=== PATIENT | female | born 1975 | race Caucasian/White ===

== ENCOUNTER → 2020-11-27 10:08 | Outpatient (BNVA) | payer OTHER, SELFPAY | PROVIDERS: Family Provider Family Medicine; PCP Family Medicine; Visit Provider Family Medicine | DX: B00.1 Herpesviral vesicular dermatitis (principal); Z14.8 Genetic carrier of other disease; R19.4 Change in bowel habit | CPT/HCPCS: 82728; 83550 ==

== ENCOUNTER → 2020-12-05 08:21 | Outpatient (BNVA) | payer OTHER, SELFPAY | PROVIDERS: Family Provider Family Medicine; PCP Family Medicine; Visit Provider Family Medicine | DX: B00.1 Herpesviral vesicular dermatitis (principal); Z14.8 Genetic carrier of other disease; R19.4 Change in bowel habit; L85.3 Xerosis cutis; G43.009 Migraine without aura, not intractable, without status migrainosus | CPT/HCPCS: 87046; 87177; 87209 ==

== ENCOUNTER → 2021-02-07 15:47 | Outpatient (BNVA) | payer OTHER, SELFPAY | PROVIDERS: Family Provider Family Medicine; PCP Family Medicine; Visit Provider Nurse Practitioner Women's Health | DX: Z01.419 Encounter for gynecological examination (general) (routine) without abnormal findings (principal); B00.1 Herpesviral vesicular dermatitis; Z87.42 Personal history of other diseases of the female genital tract | CPT/HCPCS: 88175 ==

== ENCOUNTER 2021-03-20 06:00 | Outpatient (CLI) | payer OTHER, SELFPAY | END 2021-03-20 06:01 | disposition home or self-care (01) | LOC: LAB 04-06 15:30 | PROVIDERS: PCP Family Medicine; Visit Provider Family Medicine | DX: D50.9 Iron deficiency anemia, unspecified (principal); Z14.8 Genetic carrier of other disease | CPT/HCPCS: 82728; 83550; 85025 ==

== ENCOUNTER 2021-03-24 09:28 | Emergency (ER) | payer OTHER, SELFPAY ==
[2021-03-24 09:36] VITALS: BP 136/88; PULSE 97; RESP 16; TEMP 36.9; O2SAT 100; BMI 23.3
--- NOTE | 2021-03-24 09:43 | W.ED.BACK ---
HPI - Back Pain/Injury General: Chief Complaint: Back Pain/Injury Stated Complaint: BACK PAIN Time Seen by Provider: 03/24/21 09:37 Source: patient Mode of arrival: ambulatory Limitations: no limitations History of Present Illness: HPI Narrative: Patient is a 45-year-old female who presents to the ED today with a complaint of lower back pain. Patient tells me last week while carrying her granddaughter up a flight of stairs she immediately noticed an explosion sensation to her lower back. Patient tells me in 2018 she was diagnosed with a bulging disc near her L5 vertebrae. She feels this most likely has happened again. She has seen her PCP as well as [facility] who has prescribed robaxin, prednisone, hydrocodone, diclofenac. She states pain is continuing to worsen. PCP has ordered a CT scan outpatient however patient states with her insurance it will most likely not be completed anytime soon. She states the pain radiates to her left upper leg. She denies saddle anesthesia. No urinary retention or bowel incontinence. MD elicited complaint: back pain Pertinent past history: prior back pain Onset (ago): day(s) Timing: constant Severity: severe Similar Symptoms Previously: Yes Location: lumbar spine Radiation: left upper leg Exacerbating factors: movement, walking and coughing/sneezing Relieving factors: none Associated symptoms: Reports difficulty walking (secondary to pain); Deny abdominal pain, dysuria or fever(s) Treatments prior to arrival: prescription analgesics Work related injury: No Review of Systems Const: Denies: fever(s) Card: Denies: chest pain Resp: Denies: dyspnea GI: Denies: abdominal pain : Denies: flank pain or dysuria Musc: Reports: back pain; Denies: neck pain, extremity pain, extremity swelling, joint pain, joint swelling, joint redness, joint warmth or limited range of motion Neuro: Reports: difficulty walking (secondary to pain); Denies: headache(s), numbness in extremities, weakness in extremities, sensory changes or frequent falls [facility] PFSH: Medical History Carrier of hemochromatosis HFE gene mutation Eustachian tube dysfunction H/O menorrhagia Lumbar disc disease Migraine headache No pertinent past medical history neghx: htn,dm,thyroid,dvt/pe PCP: Dr. John Recurrent cold sores Surgical History H/O oral surgery (~1994) Family History Father Heart disease Hypercholesteremia Mother Family history of thyroid problem Family/Other Family history of thyroid problem Maternal AUNT Maternal COUSINS Breast cancer Maternal GREAT AUNT--dx age 70's Diabetes GREAT AUNT GREAT-GRANDFATHER Grandmother Family history of thyroid problem Maternal Hypertension Maternal and Paternal Grandfather Hypertension Maternal and Paternal Denies family history of Colon cancer Ovarian cancer Uterine cancer Stroke Social History Smoking and tobacco status: never smoked Alcohol intake: never Physical Exam Const: COMMON NORMALS: no acute distress, average body habitus, patient oriented x3, no limitations, healthy appearing, alert and well nourished GENERAL APPEARANCE: cooperative ORIENTATION/CONSCIOUSNESS: Yes awake, Yes oriented to person, Yes oriented to place and Yes oriented to time Back/Pelvis: THORACIC SPINE/UPPER BACK: Yes normal to inspection and Yes thoracic ROM normal LUMBAR SPINE/LOWER BACK: Yes lumbar ROM normal, Yes lumbar spinal tenderness Lumbar spinal tenderness location: L4 and L5, No paraspinal muscle tenderness and No paraspinal muscle spasm PELVIS: Yes buttocks normal SACROILIAC JOINTS: Yes SI joints normal Extremity: GENERAL: Yes normal exam except as noted Neuro: COMMON NORMALS: patient oriented x3, moves all extremities, no focal motor deficits, no sensory deficits noted and gait normal SENSORIUM/ORIENTATION: Yes alert, Yes oriented to person, Yes oriented to place and Yes oriented to time Skin: COMMON NORMALS: no rashes or lesions noted GENERAL SKIN EXAM: no rashes or lesions noted Course Vital Signs: Vital signs: Vital Signs Temperature 98.4 F 03/24/21 09:36 Pulse Rate 97 03/24/21 09:36 Respiratory Rate 16 03/24/21 09:36 Blood Pressure 136/88 03/24/21 09:36 Pulse Oximetry 100 03/24/21 09:36 MDM - Back Pain/Injury MDM Narrative: Medical decision making narrative: No emergent findings on physical exam or CT. She is requesting referral to Dr. Lora so this was placed with CM. Return to ED precautions given. She is comfortable continuing to take her currently prescribed medications for her discomfort. Imaging Data^: CT lumbar: Radiologist's impression: [facility] [address] [place] [address] CT Scan Report Signed Patient: Martine Aguilar Unit #: [id number] : [id number] Age/Sex: 45 / F ADM Date: 03/24/21 Loc: ER Room/Bed: Attending Dr: Ordering Provider/Ordering MD: Virginia Brand Date of Service: 03/24/21 Procedure(s): CT lumbar spine wo con* [id number] Accession Number(s): [id number] Report Number: [id number] WS: [id number] CT LUMBAR SPINE, noncontrast. HISTORY: lower back pain TECHNIQUE: Contiguous 2.5 mm axial imaging are performed. Sagittal and coronal reformats are submitted and reviewed. All CT scans at [facility] use at least one of these dose optimization techniques: automated exposure control; mA and/or kV adjustment per patient size (includes targeted exams where dose is matched to clinical indication); or iterative reconstruction. IV contrast: None DLP: 1468.68 mGy.cm COMPARISON: 11/30/2017 Rudimentary rib is suspected at T12 as seen on the loan manager localizer. 5 lumbar type vertebral bodies with partial sacralization of L5 on the RIGHT. Normal lumbar alignment. No fractures. No pars defects. L1-2: Normal. L2-3: Normal. L3-4: Normal. L4-5: Mild annular disc bulging with a central disc protrusion. Additional smaller protrusion in the LEFT foramen is new. Mild encroachment upon the ventral thecal sac. There is slightly greater encroachment upon the LEFT L5 nerve root. And mild impingement upon the ventral thecal sac. L5-S1: Slight annular disc bulging with no stenosis. Visualized retroperitoneum is normal. CT/CT lumbar spine wo con* [id number] IMPRESSION: 1. No significant stenosis. 2. Central and LEFT foraminal disc protrusions at L4-5 with mild encroachment upon the ventral thecal sac and the LEFT L5 nerve root. Slightly greater involvement as compared to 11/30/2017. 3. No fractures. 4. Partial sacralization L5 on the RIGHT. Dictated By: Tara Bolaños DO Signed By: Tara Bolaños DO Signed Date/Time: 03/24/21 1102 DD/ 1056 Discharge Plan Discharge Patient Disposition: Home Clinical Impression: Bulging of intervertebral disc between L4 and L5 Condition: Stable Prescriptions: No Action fexofenadine [Judy Allergy] 180 mg tablet 180 mg PO QDAY RF: 0 fluticasone propionate [Flonase Allergy Relief] 50 mcg/actuation spray,suspension 1 spray INTRANASAL QDAY RF: 0 valacyclovir 1 gram tablet 2,000 mg PO BID PRNRF: 0 hydrocodone-acetaminophen 5-325 mg tablet 1 tab PO Q8H PRN (Reason: pain) 6 Days Qty: 14 RF: 0 diclofenac sodium 75 mg tablet,delayed release (DR/EC) 75 mg PO Q12H Qty: 60 RF: 0 prednisone 10 mg tablet 30 mg PO DAILY 5 Days Qty: 15 RF: 0 methocarbamol [Robaxin-750] 750 mg tablet 750 mg PO TID 6 Days Qty: 18 RF: 0 pseudoephedrine HCl [Sudafed] 30 mg tablet 60 mg PO Q6H PRN (Reason: nasal congestion) Qty: 30 RF: 0 Discharge Orders: Discharge ED (Routine); Ordered 03/24/21 Ordered By: Virginia Brand Referrals: Henrik Lora DO [Physician] - Radha John DO [Primary Care Provider] - Patient Instructions: Lumbar Disc Herniation (ED) Activity Restrictions/Additional Instructions: As discussed case management should contact you today or tomorrow and get you set up with an appointment for evaluation with Dr. Lora. He may return to the emergency department for worsening or uncontrollable pain, urinary retention, bowel incontinence, inability to ambulate, or any other concerns you may have. I hope you begin to feel better soon. Coding Level of Care Code ED Fabric Separator Operator for Sherong Fwd Exam Detailed
--- NOTE | 2021-03-24 09:54 | CT_ITS ---
WS: [id number] CT LUMBAR SPINE, noncontrast. HISTORY: lower back pain TECHNIQUE: Contiguous 2.5 mm axial imaging are performed. Sagittal and coronal reformats are submitte d and reviewed. All CT scans at [facility] use at least one of these dose optimization te chniques: automated exposure control; mA and/or kV adjustment per patient size (includes targeted exa ms where dose is matched to clinical indication); or iterative reconstruction. IV contrast: None DLP: 1468.68 mGy.cm COMPARISON: 11/30/2017 Rudimentary rib is suspected at T12 as seen on the field agronomist localizer. 5 lumbar type vertebral bodies wi th partial sacralization of L5 on the RIGHT. Normal lumbar alignment. No fractures. No pars defects. L1-2: Normal. L2-3: Normal. L3-4: Normal. L4-5: Mild annular disc bulging with a central disc protrusion. Additional smaller protrusion in the LEFT foramen is new. Mild encroachment upon the ventral thecal sac. There is slightly greater encroac hment upon the LEFT L5 nerve root. And mild impingement upon the ventral thecal sac. L5-S1: Slight annular disc bulging with no stenosis. Visualized retroperitoneum is normal. CT/CT lumbar spine wo con* [id number] IMPRESSION: 1. No significant stenosis. 2. Central and LEFT foraminal disc protrusions at L4-5 with mild encroachment upon the ventral thecal sac and the LEFT L5 nerve root. Slightly greater involv ement as compared to 11/30/2017. 3. No fractures. 4. Partial sacralization L5 on the RIGHT.
--- NOTE | 2021-03-25 09:27 | DCPLANNER ---
air export logistics manager had message to schedule a follow up appointment for patient with Dr. Lora at ortho for spine, back pain/disc protrusion. air export logistics manager called the ortho clinic, spoke with Grisel, gave clinic patients information. air export logistics manager was told that patients information would be printed and reviewed. Clinic will call patient with appointment information.
--- NOTE | 2021-03-26 07:32 | DCPLANNER ---
Patient has a follow up appointment scheduled for Thursday, April 01, 2021 at 8:[address] Lora at [facility]. Clinic will call patient with appointment information.
--- NOTE | 2021-05-15 14:49 | DCPLANNER ---
Patient had a follow up appointment scheduled for 04.01.[address]ora at [facility] - patient did attend appointment.
== END 2021-03-24 11:21 | disposition home or self-care (01) ==
PROVIDERS: Emergency Provider Physician Assistant; PCP Family Medicine
DX: M51.26 Other intervertebral disc displacement, lumbar region (principal)
CPT/HCPCS: 72131; 99282

== ENCOUNTER → 2021-04-01 08:59 | Outpatient (BNVA) | payer OTHER, SELFPAY | PROVIDERS: PCP Family Medicine; Referring Provider Physician Assistant; Visit Provider Orthopaedic Surgery | DX: M51.9 Unspecified thoracic, thoracolumbar and lumbosacral intervertebral disc disorder (principal); M51.16 Intervertebral disc disorders with radiculopathy, lumbar region; M54.9 Dorsalgia, unspecified; M47.896 Other spondylosis, lumbar region | CPT/HCPCS: 72110 ==

== ENCOUNTER 2021-04-11 08:25 | Outpatient (CLI) | payer OTHER, SELFPAY ==
--- NOTE | 2021-04-11 08:49 | MR_ITS ---
WS: [id number] MRI LUMBAR SPINE NONCONTRAST HISTORY: BACK PAIN COMPARISON: 11/25/[address] 03/24/2021 TECHNIQUE: Sagittal and axial multisequence imaging is submitted. The same numbering pattern will be utilized on today's MRI as on the recent CT of 03/24/2021 and the p rior MRI of 11/25/2012. Mild straightening of the normal lumbar lordosis. No marrow edema. Mild disc desiccation at L4-5 and L5-S1 without significant stenosis. Several Schmorl's nodes defects are noted. Conus terminates normally at L1. L1-L2: Normal. L2-L3: Normal. L3-L4: Very mild annular disc bulging. No stenosis. L4-L5: Very mild annular disc bulge with a central disc protrusion and annular fissure. Mild contact and flattening of the ventral thecal sac. No significant foraminal stenosis. There is mild disc conta ct on the L5 nerve roots bilaterally in the lateral recesses, LEFT greater than RIGHT. L5-S1: No stenosis. MR/MR lumbar spine wo con* [id number] IMPRESSION: 1. Same vertebral body numbering pattern will be utilized on today's MRI as on the prior CT and MRI. 2. Central disc protrusion at L4-5 contacting the L5 nerve roots bilaterally i n the lateral recesses, LEFT greater than RIGHT. Otherwise no significant steno sis.
== END 2021-04-11 08:26 | disposition home or self-care (01) ==
LOC: RADSHAW 08:27
PROVIDERS: PCP Family Medicine; Visit Provider Orthopaedic Surgery
DX: M51.26 Other intervertebral disc displacement, lumbar region (principal)
CPT/HCPCS: 72148

== ENCOUNTER → 2021-04-16 09:28 | Outpatient (BNVA) | payer OTHER, SELFPAY | PROVIDERS: PCP Family Medicine; Referring Provider Orthopaedic Surgery; Visit Provider Anesthesiology Pain Medicine | DX: M51.36 Other intervertebral disc degeneration, lumbar region (principal); M51.37 Other intervertebral disc degeneration, lumbosacral region; M54.9 Dorsalgia, unspecified | CPT/HCPCS: 99205 ==

== ENCOUNTER → 2021-04-29 14:14 | Outpatient (BNVA) | payer OTHER, SELFPAY | PROVIDERS: PCP Family Medicine; Visit Provider Anesthesiology Pain Medicine | DX: M54.16 Radiculopathy, lumbar region (principal); M54.9 Dorsalgia, unspecified; Z79.891 Long term (current) use of opiate analgesic | CPT/HCPCS: 64483; 64484; J1100; J3490 ==

== ENCOUNTER → 2021-05-12 09:04 | Outpatient (BNVA) | payer OTHER, SELFPAY | PROVIDERS: PCP Family Medicine; Visit Provider Anesthesiology Pain Medicine | DX: M54.9 Dorsalgia, unspecified (principal); M51.9 Unspecified thoracic, thoracolumbar and lumbosacral intervertebral disc disorder; M51.16 Intervertebral disc disorders with radiculopathy, lumbar region; M79.605 Pain in left leg; Z79.891 Long term (current) use of opiate analgesic | CPT/HCPCS: 99213 ==

== ENCOUNTER → 2021-08-06 11:33 | Outpatient (BNVA) | payer OTHER, SELFPAY | PROVIDERS: PCP Family Medicine; Visit Provider Orthopaedic Surgery | DX: Z01.818 Encounter for other preprocedural examination (principal); Z20.822 Contact with and (suspected) exposure to COVID-19 | CPT/HCPCS: 87635 ==

== ENCOUNTER 2021-08-11 05:37 | Day surgery (SDC) | payer OTHER, SELFPAY ==
[2021-08-08 11:17] VITALS: BMI 24.2
--- NOTE | 2021-08-08 13:19 | ANES.PREANE2 ---
Pre-Anesthetic Assessment Pre-Anesthetic Assessment: Height/Weight: Height 1.68 m Weight 68.039 kg Preop Diagnosis: lumbar stenosis Proposed Procedure: Operation Date: 08/11/21 07:00 Proposed Procedures p L4/5 MIS decompresssion 50020 m51.16(Not Applicable) - Henrik Lora, DO Was Beta Tito taken within 24 hours: N/A Was Clonidine taken within 24 hours: N/A Social: Social History: No alcohol and No tobacco Exam: Pre-Anes Outpt Exam: alert and oriented x 3 Airway: Submandibular: WNL Cervical ROM: WNL MP: 1 Pulmonary: Pulmonary: None reported CV/HEM: CV/HEM: None reported : : None reported Hepatic: Hepatic: None reported GI: GI: None reported Metabolic: Metabolic: None reported Musc/skel: Musc/skel: Lower Back Pain, OA/DJD and Weakness Neuropsych: Neuropsych: None reported Anesthetic Plan: ASA status: 2 Anesthesia: General PFSH Anesthesia PFSH: Medical History Carrier of hemochromatosis HFE gene mutation Eustachian tube dysfunction H/O menorrhagia Lumbar disc disease Migraine headache No pertinent past medical history neghx: htn,dm,thyroid,dvt/pe PCP: Dr. John Recurrent cold sores Surgical History H/O oral surgery (~1994) Family History Father Heart disease Hypercholesteremia Mother Family history of thyroid problem Family/Other Family history of thyroid problem Maternal AUNT Maternal COUSINS Breast cancer Maternal GREAT AUNT--dx age 70's Diabetes GREAT AUNT GREAT-GRANDFATHER Grandmother Family history of thyroid problem Maternal Hypertension Maternal and Paternal Grandfather Hypertension Maternal and Paternal Denies family history of Colon cancer Ovarian cancer Uterine cancer Stroke Social History Smoking and tobacco status: never smoked Alcohol intake: never Female Reproductive History: Date of last menstrual period: 07/30/21 Data Anesthesia Cardiac Studies: No Data to Display
[2021-08-11] VITALS (8 sets, daily range): BP systolic 103–150; BP diastolic 68–91; PULSE 80–129; RESP 16–21; TEMP 36.3–36.8; O2SAT 98–100
--- NOTE | 2021-08-11 | XR_ITS ---
WS: [id number] XR lumbar spine 1V [id number] REASON FOR EXAM: decompression L4/L5 FINDINGS: Surgical instrument overlying the L4-L5 disc space. XR/XR lumbar spine 1V 24710 IMPRESSION: L4-L5 disc space localized.
--- NOTE | 2021-08-11 | SCC_ITS ---
Procedure Done: Left L4/5 laminectomy with partial facetectomy 11.8 seconds of fluoroscopic guidance, for a cumulative dose of 2.72 mGy, was provided to Dr. Lora by the radiology department. C-arm images of the lumbar spine were saved for the patient's permanent record. [facility]OSPITALBritt
[2021-08-11 06:02] LABS: OR HCG Qualitative Urine Negative (Negative)
[2021-08-11] MEDS: sodium chloride 0.9% 1,000 ML 30 ML IV (06:11)
--- NOTE | 2021-08-11 06:40 | W.PM.OPSUD ---
Surgery/Procedure H&P Update DATE OF PROCEDURE: August 11, 2021 DATE H&P PERFORMED: 08/11/21 H&P UPDATE INFORMATION: I have reviewed H&P completed within last 30 days, I have examined patient prior to procedure and No changes to prior documentation PREOP DIAGNOSIS: lumbar stenosis PLANNED PROCEDURE: Operation Date: 08/11/21 07:00 Proposed Procedures p L4/5 MIS decompresssion 15392 m51.16(Not Applicable) - Henrik Lora,
--- NOTE | 2021-08-11 06:41 | P.HP_ITS ---
Providers/Chief Complaint Primary Care Provider: Radha John DO Chief Complaint: L4/5 MIS decompresssion History of Present Illness Martine Aguilar is a 46 year old female evaluation of her lower back pain and recent injections with Dr. Yang. Patient states the injections lasted about a week an a half. Patient states that they went on a trip and the pain began to increase again. Patient states it is to the lower back, radiating into the buttocks, hip and upper thigh. Patient states that she has some tingling to the upper leg/thigh area. Associated symptoms: Denies abdominal pain, chills, fever(s), nausea or vomiting Review of Systems Narrative: General ROS: negative for weight changes, fever ENT ROS: negative for nasal congestion, drainage or bleeding, sore throat, dysphagia or ear pain Eyes: PERRL Hematological and Lymphatic ROS: negative for swollen glands or abnormal bleeding Endocrine ROS: negative for polyuria/polydpsia or new changes in weight Respiratory ROS: negative for cough, shortness of breath, or wheezing Cardiovascular ROS: negative for chest pain or dyspnea on exertion Gastrointestinal ROS: negative for reflux, abdominal pain, change in bowel habits, or black or bloody stools Musculoskeletal ROS: negative for back pain, neck pain, or joint pain or swelling except for current problem Neurological ROS: negative for TIA or stoke symptoms Skin: no rashes Medications/Allergies Home Medications Medication Instructions Recorded Confirmed Last Taken Type fluticasone propionate 50 1 spray INTRANASAL QDAY 12/29/19 08/11/21 08/10/21 History mcg/actuation nasal spray,suspension valacyclovir 1 gram tablet 2,000 mg PO BID PRN tab 02/07/21 08/08/21 Unknown History hydrocodone 5 mg-acetaminophen 325 1 tab PO Q8H PRN 6 Days #14 tab 03/20/21 08/08/21 Unknown Rx mg tablet Allergies Allergy/AdvReac Type Severity Reaction Status Date / Time Sulfa (Sulfonamide Allergy throat Verified 08/11/21 06:02 Antibiotics) felt funny PFSH Acute PFSH: Medical History Carrier of hemochromatosis HFE gene mutation Eustachian tube dysfunction H/O menorrhagia Lumbar disc disease Migraine headache No pertinent past medical history neghx: htn,dm,thyroid,dvt/pe PCP: Dr. John Recurrent cold sores Surgical History H/O oral surgery (~1994) Family History Father Heart disease Hypercholesteremia Mother Family history of thyroid problem Family/Other Family history of thyroid problem Maternal AUNT Maternal COUSINS Breast cancer Maternal GREAT AUNT--dx age 70's Diabetes GREAT AUNT GREAT-GRANDFATHER Grandmother Family history of thyroid problem Maternal Hypertension Maternal and Paternal Grandfather Hypertension Maternal and Paternal Denies family history of Colon cancer Ovarian cancer Uterine cancer Stroke Social History Smoking and tobacco status: never smoked Alcohol intake: never Female Reproductive History: Date of last menstrual period: 07/30/21 Vitals/I&O/Wt Last Vital Signs Temp 98.2 F 08/11/21 06:04 Pulse 80 08/11/21 06:04 Resp 16 08/11/21 06:04 BP 124/91 08/11/21 06:04 Pulse Ox 98 08/11/21 06:04 Physical Exam Narrative: EXAM NARRATIVE: CONSTITUTIONAL: The patient is a normal appearing [] in no apparent distress. GENERAL: Patient in no acute distress. CARDIAC: Regular rate and rhythm. CHEST: Normal inspiratory effort, normal respiratory rate. ABDOMEN: Soft and nontender. SKIN: Clear, warm and intact. NEURO?PSYCH: The patient is alert and oriented to person, place and time. Sensorv /SILT Motor StrengthShoulder abduction C5 5/5Wrist extension C6 5/5Elbow extension C7 5/5Hand Property Management Specialist C8 5/5Finger abduction T15/5 Radial/ Ulnar/ Median n intact LowerSensory (SILT)Motor StrengthHin flexion L2/3Ant/inner thigh 5/5Hip adduction L2/3 5/5Knee extension L4 Lat thigh, 5/5Toe dorsiflexion L5 5/5Ankle dorsiflexion L5/ B91Wuyxsay flexion S1 5/5 DTRBleeps 2+Triceps 2+Brachioradialis 2+Patellar 2+Achilles 2+ MUSCULOSKELETAL: [] UPPEREXTREMITIES: The patient had full active ROM in fingers, wrist, elbow, and shoulder. The patient demonstrated ability to fully flex/extend/abduct/adduct fingers, make ok sign, cross 2nd/3rd digits, extend 1st digit fully.. Radial pulse 2+, CR<2 seconds. LOWER EXTREMITIES: Pt has full, active ROM of toes, ankle, knee, and hip. Dorsalis pedis/posterior tibialis pulses 2+, CR<2 seconds. SPINE: Skin warm, dry, intact. A&P Assessment and plan (1) Lumbar stenosis with neurogenic claudication: left MIS L4/5 Decompression Status: Acute Attestations Medical Necessity Statement*: failed cosnervative tx Coding Level of Care Code Acute Croze Machine Operator for g Fwd Diagnoses Lumbar stenosis with neurogenic claudication M48.062
--- NOTE | 2021-08-11 07:28 | P.ANESUD_ITS ---
Pre-Anesthetic Update Pre-Anesthetic Assessment: Date of Surgery/Procedure: 08/11/21 Preop Orquidea gnosis: lumbar stenosis Proposed Procedure: Operation Date: 08/11/21 07:00 Proposed Procedures p L4/5 MIS decompresssion 56168 m51.16(Not Applicable) - Henrik Lora, DO Any changes to Pre-Anesthetic Assessment?: No Last Intake: Intake Last Liquid Date 08/10/21 Last Liquid Time 20:00 Last Solid Date 08/10/21 Last Solid Time 20:00 Labs Last 48hrs: Laboratory Results - last 48 hr 08/11/21 06:01 Urine HCG, Qual Negative Vitals: Temperature 98.2 F 08/11/21 06:04 Temperature Source Temporal Artery S can 08/11/21 06:04 Pulse Rate 80 08/11/21 06:04 Respiratory Rate 16 08/11/21 06:04 Blood Pressure 124/91 08/11/21 06:04 Blood Pressure Tanna n 102 08/11/21 06:04 Pulse Oximetry 98 08/11/21 06:04 Oxygen Delivery Me thod 08/11/21 06:04 Exam: Pre-Anes Outpt Exam: alert, oriented x 3, clear to auscultation bilaterally and regular rate & rhythm Cardiac Studies: No Data to Display
--- NOTE | 2021-08-11 07:55 | P.OP_ITS ---
Operative Report Date of procedure: August 11, 2021 Pre-op Diagnosis: lumbar stenosis Post-op diagnosis: same Procedure Done: Left L4/5 laminectomy with partial facetectomy Surgeon: Henrik Lora Anesthesia: General Estimated blood loss (mL): 5 Condition: stable Disposition: PACU Procedure: Left L4/5 laminectomy with partial facetectomy Patient is brought to the operative suite. After undergoing anesthesia they are placed in the supine position. All areas of impingement are well padded. Patient is then prepped and draped in the normal sterile fashion. A skin incision is made over the L4/5 level. This is confirmed under c-arm guidance. A series of dilators are passed and the tubular retractor is docked on the L4 lamina. A bovie is used to clear the soft tissue off the lamina and the L 4/5 facet joint. A high speed julissa is then used to perform the mignon ectomy and take down the medial aspect of the L 4/5 facet joint. A kerrison rongeure was then used to take down the remaining lamina and smooth the edge of the laminectomy up to the point where the ligamentum flavum attaches. Attention was then brought to the medial aspect of the facet joint. The remaining medial aspect of the superior and inferior aspect of the facet joint were taken down with the kerrison from the pedicle of L4 to L 5. The facet joint had significant hypertrophy. Attention was then brought to the Ligamentum Flavum. The ligament was taken down from the lamina of L4 to L5 and out medially to the remaining facet joint. The ligament was thick. The dura was then exposed. The dura was in good repair. The L4 nerve was then traced with a curette out the L4/5 foramen and found to be adequately decompressed. The L5 nerve was traced with a curette around the L5 pedicle. The lateral recess was opened with a kerrison helping to further decompress the L5 nerve. Wound is then irrigated copiously with saline and surgiflo is used to stop any bleeding. The tubular retractor is removed and the wound is closed with vicryl and monocryl suture. Glue is then used to protect the wound. A sterile dressing is then placed. Patient was then placed in the supine position and transferred to the PACU in stable condition.
[2021-08-11] MEDS: HYDROcodone-acetaminophen 5-325 mg Tablet 1 TAB PO (08:47)
--- NOTE | 2021-08-11 14:49 | ANE.PACU2 ---
Inpatient post-anesthesia follow up: Airway intact: Yes Vital signs: Temperature 98.1 F Pulse Rate 88 Respiratory Rate 16 Blood Pressure 105/77 Pulse Oximetry 100 Oxygen Delivery Me thod Room Air Oxygen Flow Rate Fraction of Inspir ed Oxygen Hydration adequate: Yes Nausea and vomiting: No Pain level: 2 Mental status: Baseline
== END 2021-08-11 09:55 | disposition home or self-care (01) ==
PROVIDERS: PCP Family Medicine; Visit Provider Orthopaedic Surgery
PROC: (CPT 63005; principal; 2021-08-11 07:00)
DX: M48.062 Spinal stenosis, lumbar region with neurogenic claudication (principal)
CPT/HCPCS: 63047; 72020; 76000; 81025; 84703; J0330; J0690; J1100; J2405; J2710; J3010; J3490; J7030

== ENCOUNTER → 2022-01-16 12:22 | Outpatient (BNVA) | payer OTHER, SELFPAY | PROVIDERS: PCP Family Medicine; Visit Provider Family Medicine | DX: Z13.6 Encounter for screening for cardiovascular disorders (principal); R53.83 Other fatigue; Z14.8 Genetic carrier of other disease; R07.89 Other chest pain; Z12.39 Encounter for other screening for malignant neoplasm of breast | CPT/HCPCS: 80053; 80061; 82728; 83550; 84443; 85025 ==

== ENCOUNTER 2022-03-06 06:35 | Outpatient (CLI) | payer OTHER, SELFPAY ==
[2022-03-06 07:15] VITALS: BMI 23.8
--- NOTE | 2022-03-06 07:16 | ECG_ITS ---
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 Interpretive Statements NAME OF STUDY: EXERCISE SESTAMIBI STRESS TEST INDICATION: Atypical Chest Pain Baseline blood pressure of 96/79 mm Hg, heart rate of 88 beats per minute and oxygen saturation of 96%. EKG showed normal sinus rhythm, right axis deviation with normal ST-Ts. The patient exercised for 7 minutes 17 seconds on a standard [place] protocol. Patient attained a maximum heart rate of 187 beats per minute(106% of the maximum predicted heart rate) with a blood pressure at the peak exercise of 141/71 mm Hg and oxygen saturation 91%. The EKG at the peak exercise revealed sinus tachycardia with 1-1/[address] depression in lead II, III, aVF, V4 to V6. Patient did not have any chest pain or any significant arrhythmis with the exercise During the recovery phase, there were no new changes. Blood pressure at the end of the recovery phase was 113/82 mm Hg with a heart rate of 103 beats per minute and oxygen saturation 97%. CONCLUSION: 1. Positive EKG response to treadmill exercise. The EKG at the peak exercise revealed sinus tachycardia with 1 1/[address] depression in lead II, III, aVF, V4 to V6. 2. No exercise-induced chest pain or cardiac arrhythmia 3. Good exercise tolerance, attained a maximum of 10.2 METs. Maximum VO2 of 35.7 mL/kg/min. 4. Baseline normal blood pressure with normal response to exercise. 5. Perfusion scan will be documented separately. Electronically Signed On 03-10-2022 17:40:57 CDT by Radha Suazo M.D. [id number]
--- NOTE | 2022-03-06 07:16 | NMCV_ITS ---
NM dagmar perf SPECT r/s* [id number] Martine Aguilar Age: 46 Gender: F : 1975 Exam Date: 03/06/2022 07:52 Ordering Phys: Radha Suazo MD ([email or web address]) Technologist: AMANDA Kidd Exam Location: [facility] Indications: ATYPICAL CHEST PAIN STRESS TEST Please [facility] IMAGE PROTOCOL Rest/Stress 1 Exercise Day Radiopharmaceutical Dose (mCi) Administration Site Administered by Rest: Tc-99m 10.6 IV AMANDA Howard Sestamibi Stress:Tc-99m 32.5 IV AMANDA Kidd Sestamiaudi Rest: 06-Mar-2022 60 Discovery 630 Stress: 06-Mar-2022 30 Discovery 630 Radiopharmaceutical was injected at 102% maximum heart rate. Images obtained in supine and prone position. SPECT RESULTS Technical Quality: Excellent Raw Data Analysis: Normal Image Corrections: No attenuation or motion correction applied Summed Stress Score: 1 Summed Rest Score: 0 Summed Difference Score: 1 PERFUSION FINDINGS Small sized perfusion abnormality of mild severity of mid anterior wall on stress images. FUNCTIONAL RESULTS (calculated via Gated SPECT) Stress Image LV EF (%): 70 Stress EDV (mL):79 TID: 1.04 Stress ESV (mL):24 FUNCTIONAL FINDINGS: The left ventricle is normal in size. Transient Ischemia Dilatation of 1. The left ventricular ejection fraction is normal with a value of 70%. There is normal left ventricular wall thickening with no regional wall motion abnormality. Normal end-diastolic end-systolic volumes. IMPRESSIONS 1. Small sized reversible perfusion abnormality of mild severity of mid anterior wall. 2. This may represent small area of ischemia in left anterior descending artery territory. 3. Overall left ventricular systolic function is normal without regional wall motion abnormalities. 4. The left ventricular ejection fraction is normal with a value of 70%. 5. Good exercise tolerance with positive EKG response to exercise. Refer to separate report for details. Radha Suazo MD (Electronically Signed) Final Date: 10 March 2022 17:42 S
== END 2022-03-06 06:36 | disposition home or self-care (01) ==
LOC: RAD 06:37 → CDL 07:06
PROVIDERS: PCP Family Medicine; Visit Provider Family Medicine
DX: R07.89 Other chest pain (principal)
CPT/HCPCS: 78452; A9500

== ENCOUNTER 2022-03-31 08:48 | Outpatient (CLI) | payer OTHER, SELFPAY ==
[2022-03-31 09:41] LABS: Basophils # 0.1 10^3/uL (0.0-0.1); Basophils % 0.9 %; Eosinophils # 0.1 10^3/uL (0.0-0.8); Eosinophils % 1.8 %; Hematocrit 43.8 % (37.0-47.0); Hemoglobin 15.1 g/dL (11.5-15.3); Lymphocytes # 2.3 10^3/uL (0.8-4.8); Lymphocytes % 41.3 %; Mean Corpuscular HGB Conc 34.5 g/dL (30.0-36.0); Mean Corpuscular Hemoglobin 32.1 pg (28.0-34.0); Monocytes # 0.5 10^3/uL (0.2-0.9); Monocytes % 9.4 %; Neutrophils # 2.57 10^3/uL (1.8-7.7); Neutrophils % 46.4 %; Nucleated Red Blood Cells % 0 %; Platelet Count 265 10^3/cmm (130-400); Red Blood Count 4.71 10^6/uL (4.1-5.3); Red Cell Distribution Width 11.9 % (12.1-15.1); White Blood Count 5.5 10^3/uL (4.0-10.0)
[2022-03-31 09:55] LABS: Prothrombin Time (Patient) 12.5 Seconds (12.0-15.1)
[2022-03-31 10:00] LABS: Anion Gap 13.2 (5-19); Blood Urea Nitrogen 10 mg/dL (6-20); Calcium 8.6 mg/dL (8.5-10.5); Carbon Dioxide 26 mmol/L (22-29); Chloride 103 mmol/L (98-107); Glomerular Filtration Rate 77.9 mL/min (90-130); Glucose 100 mg/dL (65-115); Osmolality Calculated 285 mOsm/kg (285-295); Potassium 4.2 mmol/L (3.5-5.1); Sodium 138 mmol/L (136-145)
== END 2022-03-31 08:49 | disposition home or self-care (01) ==
LOC: LAB 08:50
PROVIDERS: PCP Family Medicine; Visit Provider Internal Medicine
DX: Z01.812 Encounter for preprocedural laboratory examination (principal); G43.909 Migraine, unspecified, not intractable, without status migrainosus; R07.89 Other chest pain; R53.83 Other fatigue
CPT/HCPCS: 36415; 80048; 85025; 85610

== ENCOUNTER 2022-04-02 07:24 | Outpatient (CLI) | payer OTHER, SELFPAY ==
[2022-04-02] VITALS (15 sets, daily range): BP systolic 94–117; BP diastolic 73–87; PULSE 62–77; RESP 15–23; TEMP 36.8; O2SAT 97–100; BMI 24.2
--- NOTE | 2022-04-02 07:30 | XACV_ITS ---
Exam Room: 1 Ht: 168 cm Wt: 68 kg BSA: 1.79 m2 Gender: Female : 1975 Any Known Allergies: Sulfa Exam Priority: Routine Procedure(s): Procedure Description: Diagnostic procedure Procedure Description: Left Heart Catheterization Procedure Description: Left ventriculography Procedure Description: Coronary Angiography Diagnostic Cath Status: Elective Diagnostic Findings * No significant disease noted in the Left Main, Left Anterior Descending, Right, or Circumflex coronary arteries. * INDICATION: Chest pain/ abnormal stress test. * Coronary angiography shows right dominance. Conclusions 1. No significant disease noted in the Left Main, Left Anterior Descending, Right, or Circumflex coronary arteries. 2. Normal left ventricular systolic function. Ejection fraction of 55%. Recommendations * Aggressive risk factor modification. * Outpatient cardiology follow up in 4 weeks. * Continue beta pooja. Interventional RX Recommendation: medical therapy and/or counseling Diagnostic RX Recommendation: medical therapy and/or counseling Anticoagulation: Heparin Ventriculography Ejection Fraction: 55.0 % Pressures Phase:Rest AO : 108 / 81 ( 95 ) @ 10:25:00 AM 113 / 84 ( 98 ) @ 10:28:00 AM 123 / 23 ( 66 ) @ 10:35:00 AM LV : 125 / -7 / 14 @ 10:34:00 AM 130 / -7 / 18 @ 10:35:00 AM Clinical Evaluation EBL: 5mL-10mL Procedural Details Pre-Procedure Time Out. Identified patient by full name and date of as verbalized by the patient/guarantor. Does the consent match the physician's order: Yes. Accurate & Complete Informed Consent: Yes. Inpatient/Outpatient History & Physical on Chart: Yes. If H&P is completed, is and addenduem needed: No; If yes, is the addendum complete: N/A. Visualize and Verify Site with Patient/Guarantor: N/A. Relevant Radiology Images available: Yes. Pre-op teaching completed and patient verbalized understanding. The risks, benefits, and alternatives of sedation and/or procedure were discussed by physician. The patient agrees to continue. Procedure started. Physician arrived. [facility] Clinical Fraility Score: 2: Well. 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 Chest Pain Symptom Assessment: Typical Angina Symptoms. Correct patient, site and procedure confirmed by cath team. Current diagnosis: Chest Pain. PERRLA. Strong, equal hand cloud developer bilaterally. Lungs clear x 5 lobes. IV Site on Arrival: 20 gauge in the right anticubital. IV Fluids: 0.9% NaCl at KVO. 0 mL infused prior to manager cardiac cath. Pre Procedural Pulses: bilateral dorsalis pedis was 3+. Pre Procedural Pulses: bilateral radial was 2+. Oxygen started at 2liters/min via nasal canula. right groin was prepped with chloroprep then draped in the usual sterile fashion. right radial was prepped with chloroprep then draped in the usual sterile fashion. Baseline sample Acquired. HR: 74 BPM. Physician scrubbed in. Immediate Pre-Procedure Time Out. Correct Patient: Yes; Correct Procedure: Yes; Correct Site: Yes; Correct Patient Position: Yes; Correct Supplies: Yes; Dried Flammable Prep: Yes; Blood Products Available: N/A;. Lidocaine 1% infiltrated to the right radial. Current Diagnosis : Chest Pain. Arterial access obtained. A 5 divehi TIG catheter in over wire. wire out. contrast hand injected through the catheter. Multiple views taken of left coronary artery. Catheter redirected to the RCA. Multiple views taken of right coronary artery. Catheter removed over the glide wire. Inventory is TR Glidewire Angled .035 260cm. EDP Sample taken: LV 125/-8,14; HR: 71 BPM; SpO2: 100%. LV gram performed in WHITAKER @ 10 mL/second for a total of 30 mL. EDP Sample taken: LV 130/-8,18; HR: 72 BPM; SpO2: 100%. Pullback taken: LV Off; AO Off; Mean: , Peak to Peak: , SEP: ; HR: 71 BPM; SpO2: 100%. Catheter removed over the glide wire. A 5 divehi TIG catheter in over wire. wire out. contrast hand injected through the catheter. Catheter removed over the glide wire. TR band placed. Hemostasis obtained. Post Procedure: Pulses reassessed and unchanged. PERRLA. Strong, equal hand cloud developer bilaterally. No VTE prophylaxis required. Medication's Wasted: Lidocaine 1% = 7 mL. Medication's Wasted: Nitro = 49.8 mg. Medication's Wasted: Heparin = 1000 units. Medication's Wasted: Other = Fentanyl 50 mg. Total IV fluids: 70 mL. Contrast type used: Omnipaque 300 mgI/mL, 500 mL bottle. Complications: None. Medication's Wasted: Other = Versed 1 mg. Estimated blood loss: 5mL-10mL. Responsiveness - Normal response to verbal stimuli; alert and oriented, PERRLA. Airway - Unaffected, no intervention required; spontaneous ventilation. Circulation: W/N/L, pulses unchanged. Nausea/Vomiting: No. Vital chart was stopped. Procedure completed. Patient transferred by wheelchair to CPRU. Access Site Site: Right Radial artery Sheath Size: 6 Fr Hemostasis Success: Successful Procedure Medications Start: 9:04 AM Stop: 9:04 AM Medication: Versed Amount: 1 mg Route: I.V. Start: 9:04 AM Stop: 9:04 AM Medication: Fentanyl Amount: 50 mcg Route: I.V. Start: 9:17 AM Stop: 9:17 AM Medication: Versed Amount: 1 mg Route: I.V. Start: 9:19 AM Stop: 9:19 AM Medication: Nitrogylcerin Amount: 200 mcg Route: I.A. Start: 9:20 AM Stop: 9:20 AM Medication: Fentanyl Amount: 50 mcg Route: I.V. Start: 9:23 AM Stop: 9:23 AM Medication: Versed Amount: 1 mg Route: I.V. Start: 9:24 AM Stop: 9:24 AM Medication: Heparin Amount: 5000 units Route: I.V. I, the attending physician, have reviewed and verified all procedure medications. Yes, all medications given per verbal order History/Risk Factors Hypertension: Yes Dyslipidemia: No Peripheral Arterial Disease (PAD): No Myocardial Infarction (WI): No Obesity: No Renal Disease: No Tobacco Use: Never Prior Interventions PCI: No CABG: No Valve Surgery: No Report Signatures Finalized by Toni Woods MD on 04/02/2022 10:39 AM
[2022-04-02] MEDS: diphenhydrAMINE 50 mg Capsule PO (08:38)
--- NOTE | 2022-04-02 08:55 | W.PM.OPSUD ---
Surgery/Procedure H&P Update DATE OF PROCEDURE: April 02, 2022 DATE H&P PERFORMED: 03/25/22 H&P UPDATE INFORMATION: I have reviewed H&P completed within last 30 days, I have examined patient prior to procedure and No changes to prior documentation PREOP DIAGNOSIS: Chest pain/ abnormal stress test PRIMARY INDICATION FOR PROCEDURE: Chest pain/abnormal stress test PLANNED PROCEDURE: Operation Date: 04/02/22 08:30 Proposed Procedures p Cardiac Catheterization(Left) - Toni Woods M.D Possible percutaneous coronary intervention PATIENT REASSESSED PRIOR TO SEDATION, WITH NO CHANGE NOTED: Yes PHYSICAL EXAM: alert, oriented x 3 and clear to auscultation bilaterally AIRWAY EVAL/ANESTHESIA PLAN: ASA III, Monitored Anesthesia, Local Anesthesia, Risks, benefits & alternatives of sedation and/or procedure discussed and Patient agrees to continue as planned
--- NOTE | 2022-04-02 09:45 | PC.NURSE ---
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 pt alert and oriented x3. pt complains of no pain. tr band on right wrist with distal pulse palpable. no bruising or hematoma noted. pt educated with restrictions of right wrist. stated understanding. pt placed on monitor and will be monitored per protocol.
--- NOTE | 2022-04-02 12:41 | PC.NURSE ---
tr band removed successfully. small bruise noted proximal to the tr band. marked and seen it has not grown in size. will continue to monitor site.
--- NOTE | 2022-04-02 13:13 | PC.NURSE ---
Bruise has not increased in size. Nurse educated pt on concerns for this. Pt stated understanding.
== END 2022-04-02 13:14 | disposition home or self-care (01) ==
PROVIDERS: PCP Family Medicine; Visit Provider Internal Medicine
DX: R07.9 Chest pain, unspecified (principal); R94.39 Abnormal result of other cardiovascular function study; I10 Essential (primary) hypertension
CPT/HCPCS: 36415; 93452; 93458; 96360; 96361; 99152; 99153; C1769; C1887; C1894; J1644; J2250; J3010; J3490; Q0163; Q9967

== ENCOUNTER 2022-06-04 08:13 | Outpatient (CLI) | payer OTHER, SELFPAY ==
--- NOTE | 2022-06-04 08:24 | MM_ITS ---
WS: [id number] BILATERAL SCREENING DIGITAL BREAST TOMOSYNTHESIS MAMMOGRAM WITH CAD HISTORY: Z12.39 - Encounter for other screening for malignant neoplasm... COMPARISON: 08/06/2017 and 06/07/2014 Bilateral CC and MLO views with tomosynthesis and synthetic mammography submitted. Computer aided det ection analyzed. Breast composition: The breasts are heterogeneously dense, which may obscure small masses. No suspici ous masses, microcalcifications or architectural distortion. MM/[place] [id number] IMPRESSION: BI-RADS: 1-Negative FOLLOW UP: 1 Year Follow-up
== END 2022-06-04 08:14 | disposition home or self-care (01) ==
LOC: RAD 08:13
PROVIDERS: PCP Family Medicine; Visit Provider Nurse Practitioner Women's Health
DX: Z12.31 Encounter for screening mammogram for malignant neoplasm of breast (principal)
CPT/HCPCS: 77063; 77067

== ENCOUNTER → 2022-07-07 14:20 | Outpatient (BNVA) | payer OTHER, SELFPAY | PROVIDERS: Referring Provider Nurse Practitioner Women's Health; Visit Provider Obstetrics & Gynecology | DX: B00.1 Herpesviral vesicular dermatitis (principal); N81.10 Cystocele, unspecified; N81.6 Rectocele | CPT/HCPCS: 81000 ==

== ENCOUNTER 2022-09-09 12:56 | Observation (INO) | payer OTHER, SELFPAY ==
[2022-09-04 09:01] VITALS: BMI 24.2
--- NOTE | 2022-09-04 09:43 | ANES.PREANE2 ---
Pre-Anesthetic Assessment Height/Weight: Height 1.68 m Weight 68.039 kg Preop Diagnosis: Prolapse Operation Date: 09/09/22 07:00 Proposed Procedures p Total vaginal hysterectomy 16438, Anterior colporrhaphy 67861, Single incision sling 95678,N81.3(Not Applicable) - Vitor Christian MD Familial anesthetic complications: None Was Beta Tito taken within 24 hours: Yes Was Clonidine taken within 24 hours: N/A Social No alcohol and No tobacco Exam alert, oriented x 3, clear to auscultation bilaterally and regular rate & rhythm Airway Submandibular: within normal limits Cervical ROM: within normal limits Mallampati: Class I Dentition: full Pulmonary None reported CV/HEM None reported Hx of abnormal stress test, had cathaterization which was normal METS > 4 [employer] procedure 04/19 Conclusions ? 1. No significant disease noted in the Left Main, Left Anterior Descending, Right, or Circumflex coronary arteries. ? 2. Normal left ventricular systolic function. Ejection fraction of 55%. Recommendations ? * Aggressive risk factor modification. ? * Outpatient cardiology follow up in 4 weeks. ? * Continue beta tito. Holter 03/25/22 Conclusion: 1) The observed rhythms are sinus bradycardia to sinus tachycardia. 2) The Maximum Heart Rate recorded was 137 bpm, Day :38:55 am, the Minimum Heart Rate recorded was 55 bpm, Day :54:13 pm and the Average Heart Rate was 79 bpm. 3) There were 751 PVCs with a burden of 0.4 %. 4) There were 7 PSVCs with a burden of < 0.01 %. 5) There were 8 Patient reported events. Stress Test 03/20 CONCLUSION: 1.? Positive EKG response to treadmill exercise. The EKG at the peak exercise revealed sinus tachycardia with 1 1/[address] depression in lead II, III, aVF, V4 to V6. 2.? No exercise-induced chest pain or cardiac arrhythmia 3.? Good exercise tolerance, attained a maximum of 10.2 METs. Maximum VO2 of 35.7 mL/kg/min.? 4.? Baseline normal blood pressure with normal response to exercise. 5.? Perfusion scan will be documented separately. Nuc Med Study 03/06/22 IMPRESSIONS ?1. Small sized reversible perfusion abnormality of mild severity of mid ?anterior wall. ?2.? This may represent small area of ischemia in left anterior descending ?artery territory. ?3. Overall left ventricular systolic function is normal without regional wall ?motion abnormalities. ?4. The left ventricular ejection fraction is normal with a value of 70%. ?5. Good exercise tolerance with positive EKG response to exercise.? Refer to ?separate report for details. 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 - no hx of iron overload or hemochromatosis GI None reported Metabolic None reported [facility] Lower Back Pain Spinal stenosis Neuropsych Headache Anesthetic Plan ASA status: 2 Anesthesia: Anesthesia Evaluation and General Other: We discussed risk and benefits of general anesthesia including PONV, sore throat (sometimes severe), corneal abrasion, positioning and peripheral nerve injuries, life threatening allergic reaction, post operative ICU admission requiring prolonged intubation, aspiration, stroke, heart attack, , and rare incidences of recall. Patient consents to proceed with general anesthesia. Risk of > 500 ml blood loss (7ml/kg in children): No Medications/Allergies Home Medications Medication Instructions Recorded Confirmed Last Taken Type fluticasone propionate 50 1 spray intranasal QDAY 12/29/19 09/04/22 08/10/21 History mcg/actuation nasal spray,suspension (Flonase Allergy Relief) hydrocodone 5 mg-acetaminophen 325 1 tab PO Q8H PRN pain 6 days #14 03/20/21 09/04/22 Unknown Rx mg tablet tabs metoprolol tartrate 25 mg tablet 12.5 mg PO BID #90 tabs 03/25/22 09/04/22 04/02/22 06:30 Rx valacyclovir 1 gram tablet See Rx Instructions .Route .COMPLEX 07/07/22 09/04/22 Unknown History cetirizine 10 mg tablet (Zyrtec) 10 mg PO DAILY 09/04/22 09/04/22 Unknown History Allergies Allergy/AdvReac Type Severity Reaction Status Date / Time Sulfa (Sulfonamide Allergy throat Verified 09/04/22 10:05 Antibiotics) felt funny [facility] Anesthesia Medical History (Updated 09/04/22 @ 10:06 by Emma Bruce RN) Carrier of hemochromatosis HFE gene mutation Eustachian tube dysfunction H/O menorrhagia Lumbar disc disease Migraine headache No pertinent past medical history neghx: htn,dm,thyroid,dvt/pe PCP: Dr. John Recurrent cold sores Surgical History H/O oral surgery (~1994) History of back surgery (~07/2021) Left L4/5 laminectomy with partial facetectomy performed by Dr. Lora. Family History Father Heart disease Hypercholesteremia Mother Family history of thyroid problem Family/Other Family history of thyroid problem Maternal AUNT Maternal COUSINS Breast cancer Maternal GREAT AUNT--dx age 70's Diabetes GREAT AUNT GREAT-GRANDFATHER Grandmother Family history of thyroid problem Maternal Hypertension Maternal and Paternal Grandfather Hypertension Maternal and Paternal Denies family history of Colon cancer Ovarian cancer Uterine cancer Stroke Social History Smoking and tobacco status: never smoked Alcohol intake: never Female Reproductive History Date of last menstrual period: 08/09/22 Data Anesthesia Cardiac Studies: Sestamibi Stress Test (Cardiology) 03/06/22 Holter Monitor 03/25/22
[2022-09-09] VITALS (16 sets, daily range): BP systolic 102–135; BP diastolic 63–87; PULSE 74–114; RESP 15–20; TEMP 36.1–37.3; O2SAT 97–100
[2022-09-09 06:10] LABS: OR HCG Qualitative Urine Negative (Negative)
[2022-09-09 06:29] LABS: Basophils # 0.1 10^3/uL (0.0-0.1); Basophils % 1.4 %; Eosinophils # 0.1 10^3/uL (0.0-0.8); Eosinophils % 1.8 %; Hematocrit 40.4 % (37.0-47.0); Hemoglobin 14.1 g/dL (11.5-15.3); Lymphocytes # 2.2 10^3/uL (0.8-4.8); Lymphocytes % 43.3 %; Mean Corpuscular HGB Conc 34.9 g/dL (30.0-36.0); Mean Corpuscular Hemoglobin 32.4 pg (28.0-34.0); Mean Corpuscular Volume 92.9 fl (81-99); Mean Platelet Volume 10.5 fL (7.4-10.4); Monocytes # 0.5 10^3/uL (0.2-0.9); Monocytes % 8.9 %; Neutrophils # 2.25 10^3/uL (1.8-7.7); Neutrophils % 44.2 %; Nucleated Red Blood Cells % 0 %; Platelet Count 256 10^3/cmm (130-400); Red Blood Count 4.35 10^6/uL (4.1-5.3); White Blood Count 5.1 10^3/uL (4.0-10.0)
[2022-09-09] MEDS: scopolamine 1.5 Patch 1 PATCH TRANSDERMA (06:29)
[2022-09-09] MEDS: sodium chloride 0.9% 500 ML IV (06:29)
--- NOTE | 2022-09-09 06:38 | P.ANESUD_ITS ---
Pre-Anesthetic Update Pre-Anesthetic Assessment: Date of Surgery/Procedure: 09/09/22 Preop Orquidea gnosis: Cystocele, rectocele, uterine prolapse Proposed Procedure: Operation Date: 09/09/22 07:00 Proposed Procedures p Total vaginal hysterectomy 64991, Anterior colporrhaphy 08223, Single incision sling 69588,N81.3(Not Applicable) - Vitor Christian MD Any changes to Pre-Anesthetic Assessment?: No Last Intake: Intake Last Liquid Date 09/08/22 Last Liquid Time 22:00 Last Solid Date 09/08/22 Last Solid Time 18:30 Labs Last 48hrs: Short CBC 09/09/22 Range/Units 06:13 WBC 5.1 (4.0-10.0) 10^3/ uL Hgb 14.1 (11.5-15.3) g/dL Hct 40.4 (37.0-47.0) % MCV 92.9 (81-99) fl Plt Count 256 (130-400) 10^3/c mm Neut % (Auto) 44.2 % Neut # (Auto) 2.25 (1.8-7.7) 10^3/u L Vitals: Temperature 97.2 F L 09/09/22 06:03 Temperature Source Temporal Artery S can 09/09/22 06:03 Pulse Rate 84 09/09/22 06:03 Respiratory Rate 16 09/09/22 06:03 Blood Pressure 121/81 09/09/22 06:03 Blood Pressure Tanna n 94 09/09/22 06:03 Pulse Oximetry 98 09/09/22 06:03 Oxygen Delivery Me thod 09/09/22 06:03 Exam: Pre-Anes Outpt Exam: alert, oriented x 3, clear to auscultation bilaterally and regular rate & rhythm Cardiac Studies: Sestamibi Stress Test (Cardiology) 03/06 Holter Monitor 03/25/22
--- NOTE | 2022-09-09 06:41 | W.PM.OPSUD ---
Surgery/Procedure H&P Update DATE OF PROCEDURE: September 09, 2022 DATE H&P PERFORMED: 09/04/22 H&P UPDATE INFORMATION: I have reviewed H&P completed within last 30 days, I have examined patient prior to procedure and No changes to prior documentation PREOP DIAGNOSIS: Cystocele, rectocele, uterine prolapse PLANNED PROCEDURE: Operation Date: 09/09/22 07:00 Proposed Procedures p Total vaginal hysterectomy 31765, Anterior colporrhaphy 02426, Single incision sling 24296,N81.3(Not Applicable) - Vitor Christian MD
[2022-09-09 06:55] LABS: Add Urine Microscopic? YES; Bilirubin Urine Neg (Negative); Blood Urine 3+ (Negative); Glucose Urine UA Norm (Normal); Ketones Urine Negative (Negative); Leukocyte Esterase Urine 2+ (Negative); Nitrate Urine Positive (Negative); Protein Urine 1+ (Negative); Urine Appearance SL Hazy (CLEAR); Urine Color Yellow (Yellow); Urobilinogen Urine Norm (Negative); pH Urine 6.5 (5-7)
[2022-09-09] MEDS: sodium chloride 0.9% 1,000 ML 30 ML IV (06:55)
[2022-09-09 07:00] LABS: Add Urine Culture? No; Bacteria Urine 2+ /hpf; Squamous Epithelial Cell Urine 25-40 /hpf (0-5); WBC Urine 0-4 /hpf (0-5)
[2022-09-09] MEDS: ceFOXitin 2,000 MG in sodium chloride 0.9% (plus) 50 ML 100 MG IV (07:07)
[2022-09-09 07:29] LABS: Alanine Aminotransferase 15 U/L (0-33); Albumin Level 3.7 g/dL (3.5-5.2); Alkaline Phosphatase 39 U/L (35-105); Anion Gap 14.2 (5-19); Aspartate Amino Transferase 18 U/L (0-32); Blood Urea Nitrogen 11 mg/dL (6-20); Calcium 8.5 mg/dL (8.5-10.5); Carbon Dioxide 24 mmol/L (22-29); Chloride 106 mmol/L (98-107); Globulin 2.4 g/dL (1.3-4.6); Glomerular Filtration Rate 77.6 mL/min (90-130); Glucose 99 mg/dL (65-115); Osmolality Calculated 289 mOsm/kg (285-295); Potassium 4.2 mmol/L (3.5-5.1); Sodium 140 mmol/L (136-145); Total Bilirubin 0.4 mg/dL (0.15-1.2); Total Protein 6.1 g/dL (6.6-8.7)
[2022-09-09] MEDS: estrogens Conjugated Cream 30 gm 1 APPLIC VAGINAL (09:00)
--- NOTE | 2022-09-09 09:06 | P.OP_ITS ---
Operative Report Date of procedure: September 09, 2022 Pre-op diagnosis: Preop Diagnosis Cystocele, uterine prolapse Post-op diagnosis: Cystocele, uterine prolapse Procedure done: Total vaginal hysterectomy anterior colporrhaphy augmented with allograft single incision mid urethral sling Cystoscopy Implants: Coloplast Altis single incision sling Specimens removed/disposition: Uterus Surgeon: Vitor Christian MD Estimated blood loss (mL): 150 IV fluids (mL): 1,100 Urine output (mL): 200 Procedure: After informed consent and risks, benefits, indications and alternatives reviewed with the patient was taken to the operating room. The patient was placed in dorsal lithotomy position prepped, and draped in the usual sterile fashion. The pre-procedure timeout verifying the correct patient, procedure, site and side, could not requirements was performed and acknowledge by the OR team. A Vilchis catheter was placed. A Bookwalter vaginal retractor was placed into the vagina in usual manner visualize the cervix. Cervix was grasped with a single tooth tenaculum and circumferentially infiltrated with 2% lidocaine with epinephrine. Then cervix was circumferentially incised with bovie and the bladder was dissected off the pubovesical cervical fascia anteriorly with a sponge stick and Metzenbaum scissors. The anterior peritoneal reflection was identified and the anterior cul-de-sac was entered sharply with Metzenbaum scissors. The same procedure was performed posteriorly and a posterior colpotomy was made through the posterior cul-de-sac space without difficulty and the posterior blade of the Bookwalter vaginal retractor was advanced posteriorly into the cul-de-sac. At this time, the left and right uterosacral ligaments were isolated and ligated with 0 Vicryl. The Voyant device was placed over the uterosacral ligaments on either side and w as then used in a serial fashion up through the cardinal ligaments bilaterally cross-clamped, cut, and sealed with the Voyant device. Finally, the uterine arteries were cross-clamped, cut, sealed and ligated with the Voyant device. Hemostasis was assured. The broad ligaments were then serially clamped, sealed and cut with the Voyant device on both sides. Excellent hemostasis was visualized. Both cornua were clamped, sealed and cut with the Voyant device. Then the pedicles were then suture ligated with excellent hemostasis. The uterus was excised and submitted for pathologic evaluation. No other abnormalities were noted in the pelvic cavity. The peritoneum was then closed in a pursestring fashion with 0 Vicryl suture. The vaginal cuff angles were closed with [id number] #0 Vicryl suture on both sides and transfixed with the ipsilateral cardinal and uterosacral ligaments. The remainder of the vaginal cuff was closed with #0 Vicryl in a running locked fashion. A vertical midline incision was made beneath the midurethra, nearly 1.5 cm length. Careful submucosal dissection was performed bilaterally up to the interior portion of the inferior pubic ramus. The insertion of adductor longus tendon on the patient?s pubic ramus was identified as reference land kelly. Palpated the notch along the internal edge of ischiopubic ramus where the adductor longus tendon and the inferior pubic ramus meet. The Altis single incision sling (SIS) was selected. Then the needle of the SIS inserted aiming at the location of this notch. One of the integrated self-fixating tips place onto the needle by sliding it over the end of the needle. The needle/sling assembly was inserted toward the location of identified reference notch making sure that the flat of the handle is perpendicular to the desired path. The needle was tracked along the posterior surface of the ischiopubic ramus until the midline kelly on the mesh is approximately at the midline position under the urethra. The needle was removed and the same was repeated on the contralateral side until the appropriate sling tension under the urethra was achieved ensuring that the mesh lays flat. The needle was removed and vaginal incision was closed in a running interlocking fashion with 2-0 Vicryl. The vaginal mucosa was then injected in the midline with normal saline. The vaginal mucosa was scored in the midline with the Bovie approximately 1 cm medial to the urethral meatus to 1 cm distal to the vaginal cuff. This vaginal mucosa was then undermined and then incised in the midline with the Metzenbaum scissors. The lateral aspects of the vaginal mucosa were then grasped with the Allis clamps and the vaginal mucosa was then dissected off the underlying fascia with the Metzenbaum scissors. Again, there was noted to be quite a bit of oozing at the incision, which was controlled with cautery. After adequate dissection was performed, bilaterally. The Coloplast allograft was modified at time of application to fit spacea, 3x3 cm piece . The allograft was placed in front of cystocele facing the vagina mucosa. Suture is placed at distal end of graft and placed towards vaginal cuff. Final suture is placed on proximal portion of the graft to complete the placement overlying the bladder. Then Interrupted vertical mattress sutures of 0 Vicryl were used to elevate the cystocele superiorly. The excessive vaginal mucosa was then trimmed with the Metzenbaum scissors and the vaginal mucosa was then reapproximated in the running interlocking fashion with 2-0 Vicryl. Methylene blue was given IV. Then the Vilchis catheter was removed and cystoscope was inserted. The bladder was filled with sterile water. Complete evaluation of the bladder mucosa was performed noting no lacerations, dimpling, tears, bleeding of the mucosa or muscular layers. Both ureteral orifices were identified. Prompt excretion of urine from both ureteral orifices was noted. Cystoscope was withdrawn. The Vilchis catheter was replaced. Excellent hemostasis was obtained. Sponge, lap, needle, and instrument counts were correct times three. The patient was taken to the recovery room, awake and in stable condition.
--- NOTE | 2022-09-09 09:35 | SUR.PHASEI ---
0924 PT TO PACU 5 PT AWAKES TO VOICE, GOOD RESP EFFORT NOTED ABDOMEN SOFT WITH CARMEN PAD PACKING D/I BURCH TO DD WITH LT BLUE CLEAR URINE TO TUBING AND BAG, STATLOCK TO RT INNER THIGH, BILAT SCDS ON AND WORKING , IV TO RT HAND #20 WITH NS 800MLUP AT KVO RATE PER GRAVITY, ID BRACELET TO LT WRIST , PT ID'D WITH 2 IDENTIFIERS, MONITOR SR WITH NO ECTOPY NOTED. WARM BLANKETS X 4 TO PT. PT DENIES PAIN AND NAUSEA AT THIS TIME. 0935 PT MORE ALERT WARM BLANKETS X 2 TO PT PT ON RA TRIAL, PT VERBALLY DENIES PAIN AND NAUSEA AT THIS TIME.
--- NOTE | 2022-09-09 09:50 | SUR.PHASEI ---
PT RESTING QUIETLY, WITH NO COMPLAINTS, URINE LT BLUE TO BAG APPROX 50 ML NOT EMPTIED, VSS PT ABDOMEN SOFT PT DENIES PAIN AND NAUSEA, PT SLEEPS IF NOT DISTURBED,TAKING OCC ICE CHIPS AND TOLERATES WELL, VSS. REPORT TO OPS.
--- NOTE | 2022-09-09 09:59 | SUR.PHASEI ---
PT TO OPS BAY 2 HANDOFF WITH Javier STEVENS RN, PT AWAKE ALERT ASKING FOR SPRITE TO SIP ON.
[2022-09-09] MEDS: ketorolac 30 mg/mL INJ IVP ×3 (11:02→21:59)
[2022-09-09] MEDS: HYDROcodone-acetaminophen 5-325 mg Tablet PO ×2 (11:02→19:15)
--- NOTE | 2022-09-09 12:10 | SUR.PHASEII ---
PT AWAKE ALERT HOB AT 45 DEGREES, BURCH PATENT OF CLEAR BLUE URINE, ABDOMEN SOFT, PT TAKING BROTH AND SODA AT THIS TIME , S/O AT BEDSIDE. SR UP X 2 BED LOCKED CALL LIGHT WITHIN REACH.
[2022-09-09] MEDS: dextrose 5%-lactated ringers 1,000 ML 125 ML IV ×2 (13:43→21:59)
--- NOTE | 2022-09-09 13:50 | ANE.PACU2 ---
Inpatient post-anesthesia follow up: Airway intact: Yes Vital signs: Temperature 97.0 F Pulse Rate 87 Respiratory Rate 18 Blood Pressure 106/63 Pulse Oximetry 97 Oxygen Delivery Me thod Room Air Oxygen Flow Rate 8 Fraction of Inspir ed Oxygen Hydration adequate: Yes Nausea and vomiting: No Pain level: 1 Mental status: Baseline
[2022-09-09] MEDS: ondansetron 2 mg/ML SDV 2 mL 4 MG IVP (16:24)
[2022-09-09] MEDS: docusate sodium 100 mg Capsule PO (17:52)
[2022-09-09] MEDS: metoprolol tartrate 25 mg Tablet 12.5 MG PO (21:21)
[2022-09-10 04:40] VITALS: BP 100/64; PULSE 64; RESP 16; TEMP 36.8
[2022-09-10 04:53] LABS: Hematocrit 31.5 % (37.0-47.0); Mean Corpuscular HGB Conc 34.9 g/dL (30.0-36.0); Mean Corpuscular Hemoglobin 32.7 pg (28.0-34.0); Mean Corpuscular Volume 93.8 fl (81-99); Mean Platelet Volume 10.7 fL (7.4-10.4); Platelet Count 200 10^3/cmm (130-400); Red Blood Count 3.36 10^6/uL (4.1-5.3); White Blood Count 10.6 10^3/uL (4.0-10.0)
[2022-09-10] MEDS: ibuprofen 800 mg tablet PO ×2 (05:52→13:41)
--- NOTE | 2022-09-10 07:15 | PC.NURSE ---
Vaginal packing removed by this nurse. Minimal bleeding noted. Pt tolerated well.
[2022-09-10] MEDS: docusate sodium 100 mg Capsule PO (09:28)
[2022-09-10] MEDS: cetirizine 10 mg Tablet PO (09:28)
[2022-09-10 09:30] VITALS: BP 113/74; PULSE 80; RESP 16; TEMP 36.7
--- NOTE | 2022-09-10 13:09 | P.DS_ITS ---
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 Aguilar 47-year-old female with a cystocele stage III associated with uterine prolapse admitted for planned total vaginal hysterectomy with anterior colporrhaphy augmented with allograft and single incision mid urethral sling. The procedures were performed without complication. Overnight observation was uneventful. She is afebrile and hemodynamically stable postoperative day 1. Tolerating diet well. Ambulating without difficulty. Counseled regarding pelvic rest for 6 weeks (no sex, no tampons, no vaginal douches). Return to the emergency room if any fever, increased bleeding or pain. Physical Exam Narrative: GA: Alert and oriented ?3. HEENT: WNL. Heart: Regular rate and rhythm. Lungs: Clear to auscultation bilaterally. 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 Extremities: No edema, no cyanosis, no calves pain. Urinary Catheter Management: Vilchis: Cath Placed During This Visit: yes, but has since been removed by the nurse Reason for Continuing Indwelling Catheter: Decision to DC Catheter Urinary Catheter Date of Insertion: 09/09/22 Urinary Catheter Time of Insertion: 07:38 Date Urinary Catheter Removed: 09/10/22 Time Urinary Catheter Discontinued: 04:50 History History History 2 Term 2 0 Miscarriages/Ectopic 0 Living Children 2 Discharge Data Studies Completed and Pending Pending at discharge Category Date Time Status Pathology: Surgical [PTH] Routine Pth 09/09/22 08:12 Received Laboratory Results WBC 10.6 10^3/uL (4.0-10.0) H 09/10/22 04:45 RBC 3.36 10^6/uL (4.1-5.3) L 09/10/22 04:45 Hgb 11.0 g/dL (11.5-15.3) L 09/10/22 04:45 Hct 31.5 % (37.0-47.0) L 09/10/22 04:45 MCV 93.8 fl (81-99) 09/10/22 04:45 MCH 32.7 pg (28.0-34.0) 09/10/22 04:45 MCHC 34.9 g/dL (30.0-36.0) 09/10/22 04:45 RDW 12.0 % (12.1-15.1) L 09/10/22 04:45 Plt Count 200 10^3/cmm (130-400) 09/10/22 04:45 MPV 10.7 fL (7.4-10.4) H 09/10/22 04:45 Neut % (Auto) 44.2 % 09/09/22 06:13 Lymph % (Auto) 43.3 % 09/09/22 06:13 [place] % (Auto) 8.9 % 09/09/22 06:13 Eos % (Auto) 1.8 % 09/09/22 06:13 Baso % (Auto) 1.4 % 09/09/22 06:13 Neut # (Auto) 2.25 10^3/uL (1.8-7.7) 09/09/22 06:13 Lymph # (Auto) 2.2 10^3/uL (0.8-4.8) 09/09/22 06:13 [place] # (Auto) 0.5 10^3/uL (0.2-0.9) 09/09/22 06:13 Eos # (Auto) 0.1 10^3/uL (0.0-0.8) 09/09/22 06:13 Baso # (Auto) 0.1 10^3/uL (0.0-0.1) 09/09/22 06:13 Nucleated RBC % (auto) 0 % 09/09/22 06:13 Nucleated RBCs # 0.0 /100WBC 09/09/22 06:13 Sodium 140 mmol/L (136-145) 09/09/22 07:00 Potassium 4.2 mmol/L (3.5-5.1) 09/09/22 07:00 Chloride 106 mmol/L (98-107) 09/09/22 07:00 Carbon Dioxide 24 mmol/L (22-29) 09/09/22 07:00 Anion Gap 14.2 (5-19) 09/09/22 07:00 BUN 11 mg/dL (6-20) 09/09/22 07:00 Creatinine 0.8 mg/dL (0.5-0.9) 09/09/22 07:00 GFR Calculation 77.6 mL/min (90-130) L 09/09/22 07:00 Glucose 99 mg/dL (65-115) 09/09/22 07:00 Calculated Osmolality 289 mOsm/kg (285-295) 09/09/22 07:00 Calcium 8.5 mg/dL (8.5-10.5) 09/09/22 07:00 Total Bilirubin 0.4 mg/dL (0.15-1.2) 09/09/22 07:00 AST 18 U/L (0-32) 09/09/22 07:00 ALT 15 U/L (0-33) 09/09/22 07:00 Alkaline Phosphatase 39 U/L (35-105) 09/09/22 07:00 Total Protein 6.1 g/dL (6.6-8.7) L 09/09/22 07:00 Albumin 3.7 g/dL (3.5-5.2) 09/09/22 07:00 Globulin 2.4 g/dL (1.3-4.6) 09/09/22 07:00 Urine Color Yellow (Yellow) 09/09/22 05:56 Urine Appearance Sl hazy (CLEAR) A 09/09/22 05:56 Urine pH 6.5 (5-7) 09/09/22 05:56 Ur Specific [place] 1.020 (1.005-1.030) 09/09/22 05:56 Urine Protein 1+ (Negative) H 09/09/22 05:56 Urine Glucose (UA) Norm (Normal) 09/09/22 05:56 Urine Ketones Negative (Negative) 09/09/22 05:56 Urine Blood 3+ (Negative) H 09/09/22 05:56 Urine Nitrate Positive (Negative) H 09/09/22 05:56 Urine Bilirubin Neg (Negative) 09/09/22 05:56 Urine Urobilinogen Norm mg/dL (Negative) 09/09/22 05:56 Ur Leukocyte Esterase 2+ (Negative) H 09/09/22 05:56 Urine RBC 5-10 /hpf (0-2) H 09/09/22 05:56 Urine WBC 0-4 /hpf (0-5) H 09/09/22 05:56 Ur Squamous Epith Cells 25-40 /hpf (0-5) H 09/09/22 05:56 Amorphous Sediment Not Reportable 09/09/22 05:56 Urine Bacteria 2+ /hpf (NONE) H 09/09/22 05:56 Urine HCG, Qual Negative (Negative) 09/09/22 05:56 Blood Type O Positive 09/09/22 06:13 Rho(D) Type Positive 09/09/22 06:13 Antibody Screen Negative 09/09/22 06:13 Vitals Last Vital Signs Temp 98.0 F 09/10/22 09:30 Pulse 80 09/10/22 09:30 Resp 16 09/10/22 09:30 BP 113/74 09/10/22 09:30 Pulse Ox 97 09/09/22 12:56 O2 Del Method 09/10/22 09:30 O2 Flow Rate 8 09/09/22 09:30 Discharge Plan Discharge Patient Disposition: Home Condition: Stable Prescriptions: New hydrocodone-acetaminophen 5-325 mg tablet 1 tab PO Q4H PRN (Reason: pain) Qty: 20 0RF acetaminophen 325 mg capsule 325 mg PO Q4H PRN (Reason: Postoperative pain) Qty: 60 0RF ibuprofen 800 mg tablet 800 mg PO TID PRN (Reason: pain) Qty: 60 0RF Continued fluticasone propionate [Flonase Allergy Relief] 50 mcg/actuation spray,suspension 1 spray INTRANASAL QDAY hydrocodone-acetaminophen 5-325 mg tablet 1 tab PO Q8H PRN (Reason: pain) 6 Days Qty: 14 0RF metoprolol tartrate 25 mg tablet 12.5 mg PO BID Qty: 90 3RF valacyclovir 1 gram tablet See Rx Instructions .ROUTE .COMPLEX Dose Instruction: TAKE 2 TABLETS BY MOUTH TWICE DAILY Rx Instructions: TAKE 2 TABLETS BY MOUTH TWICE DAILY PRN cetirizine [Zyrtec] 10 mg tablet 10 mg PO DAILY Discharge Orders: Discharge Order (Routine); Ordered 09/10/22 Ordered By: Vitor Christian Referrals: Vitor Christian MD [Physician] - 09/25/22 9:30 am (2 week post-op: 09/25/22 @9:30. 6 week post-op: @11:00. ) Discharge Diet: Advance as tolerated and Usual diet Discharge Activity: Limit activity as instructed Patient Instructions: Uterine Prolapse (DC), Vaginal Hysterectomy (DC), Anterior Vaginal Repair (DC), OB Discharge Report, OB Food/Drug Interaction Guide, Opioid Safety, Bladder Sling for Women (GEN), Anterior Vaginal Repair (GEN) Activity Restrictions/Additional Instructions: 1. Please call [facility] on next working day to make your post-operative appointment in 2 weeks. 2. Please stay home until you come back to the clinic on first post-operative check up. 3. Please follow instructions on your medications CAREFULLY. 4. If you have abdominal incision, do not cover it unless dressing is necessary because of drainage. OK to shower, but avoid bath. Leave steri-strips until they fall off. If they are still on one week after surgery, you may remove them. 5. If you had vaginal surgery or vaginal repair, Dr. Christian may instruct you to take SITZ bath. 6. Yellow, blood tinged odorous vaginal discharge is usually normal after hysterectomy or vaginal surgeries. 7. No sexual intercourse, tampons, or douches until you are completely released from the post-operative care. 8. Avoid constipation by eating right and maybe using some Metamucil or Milk of Magnesia. 9. All prescription refills are given during the working hours. Please do no wait till it runs out. Call the clinic at [phone] before your medication runs out. The clinic will get in touch with your doctor to prescribe medications if necessary. 10. Please remain within 40 mile radius from our hospital because emergencies do happen now and then during the post-operative period. 11. If you have stairs at home, take one step at a time slowly and minimize the number of trips. It helps to stay in one floor for the next few days. No lifting except what you can lift by one hand until you are released from the post-operative care. 12. Driving is discouraged until you are well healed. It may be 3-4 weeks before you feel strong enough to drive. You should be able to turn and look through the rear window without pain and you should be able to push the brake pedal very hard without pain before you drive. No fast rules, but SAFETY should be your primary concern. DO NOT drive if you are on sedating medications such as narcotics. 13. Call the clinic (during working hours) to make urgent appointment or go to the Emergency room, if any of the following occurs: i. Vaginal bleeding becomes heavy, more than a period. ii. Incision becomes red and sore, or drains pus. iii. Your temperature is over 100.4 or you have chill. iv. IV site becomes red and swollen (a little ``knot?? is usually OK) v. Persistent nausea and vomiting vi. Persistent constipation or diarrhea vii. Rash or allergic reaction to medications. Discharge Attestations CHEESE GRADER Time Spent in Discharge Care*: greater than 30 min Coding Level of Care Code Acute Hris Administrator for Mar Landry
[2022-09-10] MEDS: HYDROcodone-acetaminophen 5-325 mg Tablet PO (13:41)
[2022-09-10 13:45] VITALS: BP 104/63; PULSE 69; RESP 17; TEMP 36.6
== END 2022-09-10 13:45 | disposition home or self-care (01) ==
LOC: OBGYN 12:57
PROVIDERS: Admitting Provider Obstetrics & Gynecology; PCP Family Medicine; Visit Provider Obstetrics & Gynecology
PROC: (CPT 57240; principal; 2022-09-09 07:00)
PROC: (CPT 57288; 2022-09-09 07:00)
PROC: 0JQC0ZZ Repair Pelvic Region Subcutaneous Tissue and Fascia, Open Approach (ICD-10-PCS; CPT 57240; 2022-09-09 07:00)
PROC: 0TJB8ZZ Inspection of Bladder, Via Natural or Artificial Opening Endoscopic (ICD-10-PCS; CPT 52000; 2022-09-09 07:00)
DX: N81.4 Uterovaginal prolapse, unspecified (principal); N80.00 Endometriosis of the uterus, unspecified
CPT/HCPCS: 57240; 57288; 58260; 36415; 51798; 80053; 81001; 81025; 84703; 85025; 85027; 86850; 86900; 88305; 96374; 96376; C1713; C1762; G0378; J0694; J1100; J1170; J1200; J1885; J2370; J2405; J2704; J3010; J3490; J7030; J7040; Q9968

== ENCOUNTER 2023-07-21 08:51 | Outpatient (CLI) | payer OTHER, SELFPAY ==
[2023-07-21 09:11] LABS: D Dimer 0.62 ug/mLFEU (0-0.59)
== END 2023-07-21 08:52 | disposition home or self-care (01) ==
LOC: LAB 08:53
PROVIDERS: PCP Family Medicine; Visit Provider Nurse Practitioner Family
DX: Z01.89 Encounter for other specified special examinations (principal)
CPT/HCPCS: 85378

== ENCOUNTER 2023-07-21 10:56 | Emergency (ER) | payer OTHER, SELFPAY ==
[2023-07-21 10:57] VITALS: BP 145/94; PULSE 117; RESP 18; TEMP 36.8; O2SAT 98
--- NOTE | 2023-07-21 12:47 | ECG_ITS ---
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 Measurements Intervals [place] Rate: 105 P: -12 NE: 139 QRS: -32 QRSD: 83 T: 6 QT: 307 QTc: 406 Interpretive Statements SINUS TACHYCARDIA POSSIBLE LEFT ATRIAL ENLARGEMENT [-0.1mV P-WAVE IN V1/V2] LEFT AXIS DEVIATION [QRS AXIS < -30] Compared to ECG 03/15/2018 11:52:01 Left-axis deviation now present Sinus rhythm no longer present Sinus arrhythmia no longer present Electronically Signed On 07-21-2023 20:04:29 CDT by Derek Perkins M.D. [email or web address]
--- NOTE | 2023-07-21 12:47 | CT_ITS ---
WS: [id number] CTA OF THE CHEST WITH PULMONARY EMBOLISM PROTOCOL TECHNIQUE: High-resolution contrast enhanced CTA of the chest with coronal and sagittal [facility] with [facility] embolism protocol. MIP images are also reviewed. CLINICAL INFORMATION: elevated d dimer, pleuritic chest pain, fever, tachycardia COMPARISON: None. DLP: 255.[address] scans at [facility] use at least one of these dose optimization techniques: automated e xposure control; mA and/or kV adjustment per patient size (includes targeted exams where dose is matc hed to clinical indication); or iterative reconstruction. FINDINGS: Proximal main pulmonary arteries are normal. Normal segmental and subsegmental pulmonary arteries. No evidence of pulmonary embolus. Normal caliber thoracic aorta. No mediastinal or hilar lymphadenopathy. No axillary lymphadenopathy. Normal adrenal glands. Celiac and SMA are patent in the upper abdomen. Mild narrowing at the celiac o rigin. No acute pulmonary infiltrates. No focal consolidation or pleural fluid. Slight bibasal atele ctasis. IMPRESSION: 1. No evidence of pulmonary embolus. 2. Lungs are well aerated. Slight bibasal atelectasis
--- NOTE | 2023-07-21 12:47 | ED_ITS ---
HPI - Chest Pain General: Chief Complaint: Chest Pain Stated Complaint: chest pain Time Seen by Provider: 07/21/23 12:14 History of Present Illness: Patient started having spastic intermittent stabbing chest pain with deep breathing this started about 10 days ago. Patient was seen by her PCP and put on steroids. Patient improved she had some blood work done at that time. Which was essentially benign. Patient did improve up until last night which she her fever came back and her pleuritic type chest pain came back patient back to the clinic today where she had a D-dimer that was slightly elevated in the practitioner told her to come over here to the ER for further evaluation and treatment. Patient is tachycardic with a rate of 117 bpm. And does have stabbing chest pain when she takes a big deep breath and/or leaning forward. Patient is never had either 1 of these before. Review of Systems General: Reports: 10 or more systems reviewed and unremarkable except in HPI and below PFSH ED PFSH: Medical History Aftercare following surgery of the genitourinary system Carrier of hemochromatosis HFE gene mutation Eustachian tube dysfunction H/O menorrhagia Lumbar disc disease Migraine headache No pertinent past medical history neghx: htn,dm,thyroid,dvt/pe PCP: Dr. John Recurrent cold sores Surgical History H/O oral surgery (~1994) History of back surgery (~07/2021) Left L4/5 laminectomy with partial facetectomy performed by Dr. Lora. Family History Father Heart disease Hypercholesteremia Mother Family history of thyroid problem Family/Other Family history of thyroid problem Maternal AUNT Maternal COUSINS Breast cancer Maternal GREAT AUNT--dx age 70's Diabetes GREAT AUNT GREAT-GRANDFATHER Grandmother Family history of thyroid problem Maternal Hypertension Maternal and Paternal Grandfather Hypertension Maternal and Paternal Denies family history of Colon cancer Ovarian cancer Uterine cancer Stroke Social History Smoking and tobacco status: never smoked Alcohol intake: never Substance/Drug Use: never Physical Exam Const: COMMON NORMALS: no acute distress, average body habitus, patient oriented x3, no limitations, healthy appearing, alert and well nourished HENMT: COMMON NORMALS: normocephalic, atraumatic, hearing grossly normal bilaterally, external ears normal, Normal external nose present and moist oral mucous membranes HEAD & SCALP: normocephalic and atraumatic NOSE: Normal external nose present EXTERNAL EAR: Yes external ears normal Eye: COMMON NORMALS: Equal, round and reactive pupils present, EOMs intact bilaterally, conjunctivae normal and no scleral icterus CONJUNCTIVA: Yes conjunctivae normal PUPIL: Yes Equal, round and reactive pupils present Neck/C-Spine: COMMON NORMALS: full ROM, no lymphadenopathy, supple, no meningeal signs, no JVD and Thyroid normal THYROID: Thyroid normal Lymph: LYMPHATIC: no lymphadenopathy noted Chest: COMMONS NORMALS: normal inspection of the chest and normal palpation of entire chest wall Resp: COMMON NORMALS: normal respiratory effort, No retractions, No use of accessory muscles and clear to auscultation bilaterally AUSCULTATION: clear to auscultation bilaterally Cardio: COMMON NORMALS: no JVD, regular rate, regular rhythm, S1 normal heart sound present, S2 normal heart sound present, No gallops present (Cardio), No clicks present (Cardio), No murmurs present (Cardio) and No rub (Cardio) RATE: regular rate RHYTHM: regular rhythm HEART SOUNDS: S1 normal heart sound present and S2 normal heart sound present GI: COMMON NORMALS: Normal to inspection, nondistended, normoactive bowel s ounds present, Soft to palpation, non-tender, No hepatosplenomegaly present and no masses PALPATION: Yes Soft to palpation and Yes No hepatosplenomegaly present : COMMON NORMALS: Yes no CVA tenderness BLADDER/KIDNEY EXAM: Yes no CVA tenderness Back/Pelvis: COMMON NORMALS: no CVA tenderness Neuro: COMMON NORMALS: patient oriented x3 SENSORIUM/ORIENTATION: Yes alert MENINGEAL SIGNS: Yes no meningeal signs Course Vital Signs: Vital signs: Vital Signs Temperature 98.2 F 07/21/23 10:57 Pulse Rate 117 H 07/21/23 10:57 Respiratory Rate 18 07/21/23 10:57 Blood Pressure 145/94 07/21/23 10:57 Pulse Oximetry 98 07/21/23 10:57 MDM - Chest Pain Medical Decision Making Presents to the ER after being treated by her PCP with steroids for fever, pleuritic chest pain, cough and she had elevated D-dimer when she was done. CT angiogram was done as well as repeating her lab work CT angiogram was negative lab work was essentially benign mildly elevated white count at 15,000 but this may be due to the steroids. Patient actually says she feels better now than she did this morning. Patient be discharged home with diagnosis of pleuritic type chest pain. Patient is to follow-up with her PCP Differential Diagnosis Unlikely acute massive pulmonary embolism, acute respiratory failure, acute myocardial infarction, cardiac arrest or sudden cardiac Medical Records I reviewed the patient's medical records. Lab Data I reviewed the patient's lab results. 07/21/23 13:00 07/21/23 13:35 Laboratory Results WBC 15.19 10^3/uL (3.29-11.43) H 07/21/23 13:00 RBC 5.17 10^6/uL (3.85-5.65) 07/21/23 13:00 Hgb 15.80 g/dL (11.27-16.99) 07/21/23 13:00 Hct 46.5 % (36-47) 07/21/23 13:00 MCV 89.9 fl (85-98) 07/21/23 13:00 MCH 30.6 pg (27-33) 07/21/23 13:00 MCHC 34.0 g/dL (30-55) 07/21/23 13:00 RDW 13.5 % (12.1-15.1) 07/21/23 13:00 Plt Count 417 10^3/cmm (157-399) H 07/21/23 13:00 MPV 9.5 fL (7.4-10.4) 07/21/23 13:00 Neut % (Auto) 72.8 % 07/21/23 13:00 Lymph % (Auto) 18.5 % 07/21/23 13:00 [place] % (Auto) 6.6 % 07/21/23 13:00 Eos % (Auto) 0.5 % 07/21/23 13:00 Baso % (Auto) 0.7 % 07/21/23 13:00 Neut # (Auto) 11.06 10^3/uL (1.8-7.7) H 07/21/23 13:00 Lymph # (Auto) 2.8 10^3/uL (0.8-4.8) 07/21/23 13:00 [place] # (Auto) 1.0 10^3/uL (0.2-0.9) H 07/21/23 13:00 Eos # (Auto) 0.1 10^3/uL (0.0-0.8) 07/21/23 13:00 Baso # (Auto) 0.1 10^3/uL (0.0-0.1) 07/21/23 13:00 Nucleated RBC % (auto) 0 % 07/21/23 13:00 Nucleated RBCs # 0.0 /100WBC 07/21/23 13:00 Sodium 135 mmol/L (136-145) L 07/21/23 13:35 Potassium 4.0 mmol/L (3.5-5.1) 07/21/23 13:35 Chloride 100 mmol/L (98-107) 07/21/23 13:35 Carbon Dioxide 28 mmol/L (22-29) 07/21/23 13:35 Anion Gap 11.0 (5-19) 07/21/23 13:35 BUN 9 mg/dL (6-20) 07/21/23 13:35 Creatinine 0.6 mg/dL (0.5-0.9) 07/21/23 13:35 GFR Calculation 107.6 mL/min (90-130) 07/21/23 13:35 Glucose 91 mg/dL (65-115) 07/21/23 13:35 Calculated Osmolality 278 mOsm/kg (285-295) L 07/21/23 13:35 Calcium 8.6 mg/dL (8.5-10.5) 07/21/23 13:35 Total Bilirubin 0.3 mg/dL (0.15-1.2) 07/21/23 13:35 AST 12 U/L (0-32) 07/21/23 13:35 ALT 20 U/L (0-33) 07/21/23 13:35 Alkaline Phosphatase 77 U/L (35-105) 07/21/23 13:35 Total Protein 6.5 g/dL (6.6-8.7) L 07/21/23 13:35 Albumin 3.7 g/dL (3.5-5.2) 07/21/23 13:35 Globulin 2.8 g/dL (1.3-4.6) 07/21/23 13:35 EKG Data EKG 1: I personally reviewed and interpreted this EKG as follows: EKG interpretation date: 07/21/23 EKG interpretation time: 13:01 Prior EKG tracings: not available for review Interpretation: EKG shows ventricular rate 105 beats a minute MS interval 139, QRS duration 83, QTc of 368, sinus tachycardia, left axis deviation, Discharge Plan Discharge Patient Disposition: Home Clinical Impression: Pleurisy Condition: Stable Prescriptions: No Action fluticasone propionate [Flonase Allergy Relief] 50 mcg/actuation spray,suspension 1 spray INTRANASAL QDAY PRN (Reason: Allergy Symptoms) valacyclovir 1 gram tablet See Rx Instructions .ROUTE .COMPLEX Dose Instruction: TAKE 2 TABLETS BY MOUTH TWICE DAILY Rx Instructions: TAKE 2 TABLETS BY MOUTH TWICE DAILY PRN ibuprofen 800 mg tablet 800 mg PO TID PRN (Reason: pain) Qty: 60 0RF progesterone micronized 100 mg Capsule 100 mg PO QAM Rx Instructions: off 7 days; repeat cycle Levothyroxine/Synthroid Comp. 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
[2023-07-21 13:04] VITALS: PULSE 98; RESP 17; O2SAT 97
[2023-07-21 13:04] LABS: Basophils # 0.1 10^3/uL (0.0-0.1); Basophils % 0.7 %; Eosinophils # 0.1 10^3/uL (0.0-0.8); Eosinophils % 0.5 %; Hematocrit 46.5 % (36-47); Lymphocytes # 2.8 10^3/uL (0.8-4.8); Lymphocytes % 18.5 %; Mean Corpuscular Hemoglobin 30.6 pg (27-33); Mean Corpuscular Volume 89.9 fl (85-98); Mean Platelet Volume 9.5 fL (7.4-10.4); Monocytes % 6.6 %; Neutrophils # 11.06 10^3/uL (1.8-7.7); Neutrophils % 72.8 %; Nucleated Red Blood Cells % 0 %; Platelet Count 417 10^3/cmm (157-399); Red Blood Count 5.17 10^6/uL (3.85-5.65); Red Cell Distribution Width 13.5 % (12.1-15.1); White Blood Count 15.19 10^3/uL (3.29-11.43)
[2023-07-21] MEDS: iohexol 350 mg/mL 500 mL Btl (per mL) IV (13:23)
[2023-07-21 14:00] VITALS: PULSE 92; RESP 13; O2SAT 99
[2023-07-21 14:07] LABS: Alanine Aminotransferase 20 U/L (0-33); Albumin Level 3.7 g/dL (3.5-5.2); Alkaline Phosphatase 77 U/L (35-105); Aspartate Amino Transferase 12 U/L (0-32); Blood Urea Nitrogen 9 mg/dL (6-20); Calcium 8.6 mg/dL (8.5-10.5); Carbon Dioxide 28 mmol/L (22-29); Chloride 100 mmol/L (98-107); Globulin 2.8 g/dL (1.3-4.6); Glomerular Filtration Rate 107.6 mL/min (90-130); Glucose 91 mg/dL (65-115); Osmolality Calculated 278 mOsm/kg (285-295); Sodium 135 mmol/L (136-145); Total Bilirubin 0.3 mg/dL (0.15-1.2); Total Protein 6.5 g/dL (6.6-8.7)
[2023-07-21 14:43] VITALS: BP 129/84; PULSE 92; RESP 16; O2SAT 99
== END 2023-07-21 14:46 | disposition home or self-care (01) ==
PROVIDERS: Emergency Provider Emergency Medicine; PCP Nurse Practitioner Family
DX: R09.1 Pleurisy (principal)
CPT/HCPCS: 71275; 80053; 85025; 93005; 99285; Q9967

== ENCOUNTER 2023-11-03 14:06 | Outpatient (CLI) | payer OTHER, SELFPAY ==
--- NOTE | 2023-11-03 14:24 | MM_ITS ---
WS: [id number] BILATERAL 3D TOMOSYNTHESIS DIGITAL SCREENING MAMMOGRAPHY WITH CAD CLINICAL INFORMATION: SCREENING HISTORY: Screening mammogram. No current complaints. COMPARISON: 2021 TECHNIQUE: Bilateral CC and MLO views. FINDINGS: The breasts are composed of heterogeneous fibroglandular density tissue, which can limit the detectio n of small underlying mass lesions. Slightly spiculated asymmetric nodular density anterior LEFT [address] near the 12 o'clock position appears new compared to previous measuring 6.4 mm. Recommend LEFT anabel ast diagnostic mammography and ultrasound in further evaluation. RIGHT breast is unchanged. IMPRESSION: MM/[place] [id number] BI-RADS: 0-Incomplete: Need additional imaging evaluation FOLLOW UP: Need Additional Imaging Recommend LEFT breast diagnostic mammography and ultrasound.
== END 2023-11-03 14:07 | disposition home or self-care (01) ==
LOC: RAD 14:06
PROVIDERS: PCP Nurse Practitioner Family; Visit Provider Nurse Practitioner Family
DX: Z12.31 Encounter for screening mammogram for malignant neoplasm of breast (principal)
CPT/HCPCS: 77063; 77067

== ENCOUNTER 2023-11-11 13:07 | Outpatient (CLI) | payer OTHER, SELFPAY ==
--- NOTE | 2023-11-11 13:15 | MM_ITS ---
WS: [id number] LEFT 3D TOMOSYNTHESIS DIGITAL MAMMOGRAPHY WITH CAD CLINICAL INFORMATION: ABNORMAL MAMMO HISTORY: Additional views COMPARISON: 11/03/2023 TECHNIQUE: 3 views of the left breast were obtained. FINDINGS: The left breast is composed of heterogeneous fibroglandular density tissue, which can limit the detec tion of small underlying mass lesions.. The described spiculated asymmetric density compresses out on the spot compression views. However additional ovoid nodular density mid depth LEFT breast outer dontae drant measuring 9 mm. Ultrasound is pending. ULTRASOUND BREAST LEFT TECHNIQUE: Ultrasound left breast focused area of concern. CLINICAL INFORMATION: ABNORMAL MAMMO FINDINGS: Ultrasound LEFT breast upper outer quadrant. Normal underlying parenchymal tissue. No cystic or solid lesions. No suspicious findings. Ultrasound performed from the 12 to 3 o'clock position. Recommend r eturn to annual screening mammography. IMPRESSION: MM/[place] [id number] BI-RADS: 2-Benign FOLLOW UP: 1 Year Follow-up Recommend return to annual screening mammography.
== END 2023-11-11 13:08 | disposition home or self-care (01) ==
LOC: RAD 13:07
PROVIDERS: PCP Nurse Practitioner Family; Visit Provider Nurse Practitioner Family
DX: R92.8 Other abnormal and inconclusive findings on diagnostic imaging of breast (principal)
CPT/HCPCS: 76642; 77061; G0279

== ENCOUNTER 2024-01-20 05:53 | Day surgery (SDC) | payer OTHER, SELFPAY ==
[2024-01-20 06:08] VITALS: BP 124/88; PULSE 94; RESP 18; TEMP 36.2; O2SAT 98; BMI 24.8
[2024-01-20] MEDS: sodium chloride 0.9% 1,000 ML 30 ML IV (06:17)
--- NOTE | 2024-01-20 06:35 | P.HPUD_ITS ---
Surgery/Procedure H&P Update DATE OF PROCEDURE: January 20, 2024 DATE H&P PERFORMED: 12/23/23 H&P UPDATE INFORMATION: I have reviewed H&P completed within last 30 days, I have examined patient prior to procedure, No changes to prior documentation and H&P is in [facility] [place] on date indicated PLANNED PROCEDURE: Operation Date: 01/20/24 07:00 Proposed Procedures p 58227 colon G0121 screen colon A risk Z12.11(Not Applicable) - Andrew Gary MD
--- NOTE | 2024-01-20 06:49 | P.ANESASSM_ITS ---
Pre-Anesthetic Assessment Height/Weight: Height 1.68 m Weight 69.853 kg Temp Pulse Resp BP Pulse Ox O2 Del Method 97.2 F L 94 18 124/88 98 Room Air 01/20/24 06:08 01/20/24 06:08 01/20/24 06:08 01/20/24 06:08 01/20/24 06:08 01/20/24 06:08 Preop Diagnosis: screening Operation Date: 01/20/24 07:00 [place] Procedures [place] 31562 colon G0121 screen colon A risk Z12.11(Not Applicable) - Andrew Gary MD Familial anesthetic complications: none Was Beta Tito taken within 24 hours: N/A Was Clonidine taken within 24 hours: N/A Last intake: Intake Last Liquid Date 01/19/24 Last Liquid Time 20:00 Last Solid Date 01/18/24 Last Solid Time 22:00 Social No alcohol and No tobacco Airway Submandibular: within normal limits Cervical ROM: within normal limits Mallampati: Class I Dentition: full Pulmonary None reported CV/HEM None reported denies palpatations and chest pain previously listed related to thyroid None reported Hepatic None reported GI None reported Metabolic Thyroid Disease [facility] [place] None reported Neuropsych None reported Anesthetic Plan ASA status: 1 Anesthesia: MAC Medications/Allergies Home Medications Medication Instructions Recorded Confirmed Last Taken Type fluticasone propionate 50 1 spray intranasal QDAY PRN 12/29/19 01/18/24 01/18/24 History mcg/actuation nasal Allergy Symptoms spray,suspension (Flonase Allergy Relief) valacyclovir 1 gram tablet See Rx Instructions .Route .COMPLEX 07/07/22 01/18/24 01/18/24 History acetaminophen 325 mg capsule 325 mg PO Q4H PRN Pain 07/21/23 01/18/24 01/18/24 History Levothyroxine/Synthroid Comp. 1 tab PO DAILY 12/10/23 01/18/24 01/19/24 History progesterone micronized 100 mg 300 mg PO QAM 12/10/23 01/18/24 01/19/24 History capsule Allergies Allergy/AdvReac Type Severity Reaction Status Date / Time Sulfa (Sulfonamide Allergy throat Verified 01/18/24 12:41 Antibiotics) felt funny Current Medications Generic Name Dose Route Start Last Admin Trade Name Freq PRN Reason Stop Dose Admin Sodium Chloride 1,000 mls @ 30 mls/hr 01/20/24 06:00 01/20/24 06:17 Sodium Chloride 0.9% IV 30 mls/hr .Q24H BAYRON Administration PFSH Anesthesia Medical History H/O coronary angiogram 03/2022 Lumbar disc disease No pertinent past medical history neghx: htn,dm,thyroid,dvt/pe PCP: Dr. 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 Lora. H/O oral surgery (~1994) Family History Father Heart disease Hypercholesteremia Mother Family history of thyroid problem Family/Other Family history of thyroid problem Maternal AUNT Maternal COUSINS Breast cancer Maternal GREAT AUNT--dx age 70's Diabetes GREAT AUNT GREAT-GRANDFATHER Grandmother Family history of thyroid problem Maternal Hypertension Maternal and Paternal Grandfather Hypertension Maternal and Paternal Denies family history of Colon cancer Ovarian cancer Uterine cancer Stroke Data Anesthesia Cardiac Studies: Sestamibi Stress Test (Cardiology) 03/06 Holter Monitor 03/25/22
[2024-01-20 07:29] VITALS: BP 103/73; PULSE 81; RESP 14; TEMP 36.1; O2SAT 98
[2024-01-20 07:52] VITALS: BP 109/76; PULSE 76; RESP 16; O2SAT 100
--- NOTE | 2024-01-20 08:15 | ANE.PACU2 ---
Inpatient post-anesthesia follow up: Airway intact: Yes Vital signs: Temperature 97.0 F Pulse Rate 76 Respiratory Rate 16 Blood Pressure 109/76 Pulse Oximetry 100 Oxygen Delivery Me thod Room Air Oxygen Flow Rate Fraction of Inspir ed Oxygen Hydration adequate: Yes Nausea and vomiting: No Pain level: 1 Mental status: Baseline
== END 2024-01-20 08:20 | disposition home or self-care (01) ==
PROVIDERS: PCP Nurse Practitioner Family; Visit Provider Surgery
PROC: 0DJD8ZZ Inspection of Lower Intestinal Tract, Via Natural or Artificial Opening Endoscopic (ICD-10-PCS; CPT 45378; principal; 2024-01-20 07:00)
DX: Z12.11 Encounter for screening for malignant neoplasm of colon (principal); D12.5 Benign neoplasm of sigmoid colon
CPT/HCPCS: 45385; 88305; J2704; J7030

== ENCOUNTER 2024-02-21 10:52 | Outpatient (CLI) | payer OTHER, SELFPAY ==
--- NOTE | 2024-02-21 11:03 | USR_ITS ---
PROCEDURE INFORMATION: Exam: US Soft Tissue Head and Neck, Thyroid Exam date and time: 02/21/2024 11:11 AM Age: 48 years old Clinical indication: Abnormal findings; Abnormal thyroid scan; Additional info: Mass/lump on neck TECHNIQUE: Imaging protocol: Real-time ultrasound scan of the neck with image documentation. Exam focused on the thyroid. COMPARISON: MR head wo/w con [id number] 11/09/2018 9:35 AM FINDINGS: Right thyroid lobe: No nodules. Left thyroid lobe: No nodules. Isthmus: No nodules. Lymph nodes: No lymphadenopathy. US/US thyroid [id number] IMPRESSION: Unremarkable thyroid.
== END 2024-02-21 10:53 | disposition home or self-care (01) ==
LOC: RAD 10:56
PROVIDERS: PCP Nurse Practitioner Family; Visit Provider Nurse Practitioner Family
DX: R22.1 Localized swelling, mass and lump, neck (principal)
CPT/HCPCS: 76536

== ENCOUNTER 2024-03-13 08:29 | Outpatient (CLI) | payer OTHER, SELFPAY ==
--- NOTE | 2024-03-13 08:33 | MR_ITS ---
WS: [id number] MRI LUMBAR SPINE NONCONTRAST HISTORY: LOW BACK PAIN COMPARISON: 04/11/2021 TECHNIQUE: Sagittal and axial multisequence imaging is submitted. Slight retrolisthesis of L4. Mild disc desiccation without narrowing at L4-5. No fractures or marrow edema. Disc spaces and vertebral body heights are well-preserved. Conus terminates normally at L1. L1-L2: Normal. L2-L3: New LEFT paracentral disc protrusion deforming the LEFT lateral thecal sac but not causing a s ignificant stenosis. Mild ligamentum flavum and facet arthritis. L3-L4: Mild annular disc bulging with ligamentum flavum and facet arthritis. Mild progression of dege nerative facet disease. No stenosis. L4-L5: Mild annular disc bulge with a moderate size central disc protrusion. Disc protrusion encroach ing upon the thecal sac and the subarticular recesses. There is very slight contact on the traversing L5 nerve roots. Interval LEFT hemilaminectomy defect since the prior study. Moderate ligamentum flav um and facet arthritis. Very minimal foraminal narrowing. Mild central stenosis. L5-S1: Mild annular disc bulging. No stenosis. Paravertebral soft tissues are negative. IMPRESSION: 1. Since the prior MRI of 04/11/2022 LEFT L4-5 hemilaminectomy has been performed. 2. L4-5: Moderate central disc protrusion persists with mild contact on the traversing L5 nerve root s. Continued mild central, bilateral subarticular recess and foraminal stenosis. 3. New L2-3 LEFT paracentral disc protrusion contacting the LEFT lateral thecal sac but not causing significant stenosis.
== END 2024-03-13 08:30 | disposition home or self-care (01) ==
LOC: RAD 08:30
PROVIDERS: PCP Nurse Practitioner Family; Visit Provider Nurse Practitioner Family
DX: M51.26 Other intervertebral disc displacement, lumbar region (principal); M48.061 Spinal stenosis, lumbar region without neurogenic claudication
CPT/HCPCS: 72148

== ENCOUNTER 2024-07-20 14:24 | Outpatient (RCR) | payer OTHER, SELFPAY | END 2024-07-29 18:00 | disposition home or self-care (01) | LOC: SPT 14:24 | PROVIDERS: PCP Neurological Surgery; Visit Provider Neurological Surgery | DX: M79.605 Pain in left leg (principal); M96.1 Postlaminectomy syndrome, not elsewhere classified | CPT/HCPCS: 97161 ==

== ENCOUNTER 2024-07-30 06:00 | Outpatient (RCR) | payer OTHER, SELFPAY | END 2024-08-28 23:59 | disposition home or self-care (01) | LOC: SPT 06:00 | PROVIDERS: PCP Neurological Surgery; Visit Provider Neurological Surgery | DX: M79.605 Pain in left leg (principal); M96.1 Postlaminectomy syndrome, not elsewhere classified | CPT/HCPCS: 97110 ==

== ENCOUNTER 2024-08-11 10:33 | Outpatient (CLI) | payer OTHER, SELFPAY ==
--- NOTE | 2024-08-11 10:40 | FL_ITS ---
WS: [id number] FL barium swallow [id number] REASON FOR EXAM: DIFFICULTY SWALLOWING FLUOROSCOPY TIME: 2min [id number] # OF SPOT FILMS: Multiple FINDINGS: The patient was examined in the upright PA and lateral projection, prone WHITAKER, and supine position. The swallowing of barium was monitored fluoroscopically with multiple spot films from the oropharynx to the fundus of the stomach. The anatomy and motility of the cervical esophagus was normal. In the thoracic esophagus there intermittent lower esophageal spasm with loss of primary peristalsis which would lead to retention of significant amount of contrast within the thoracic esophagus. Interm ittent tertiary contractions would force contrast from the midesophagus to above the thoracic inlet. No hiatal hernia. No esophageal stricture. No findings of neoplasm. FL/FL barium swallow [id number] IMPRESSION: Esophageal dysmotility. Achalasia type II.
== END 2024-08-11 10:34 | disposition home or self-care (01) ==
LOC: RAD 10:33
PROVIDERS: PCP Neurological Surgery; Visit Provider Nurse Practitioner Family
DX: K22.0 Achalasia of cardia (principal); R13.10 Dysphagia, unspecified
CPT/HCPCS: 74220

== ENCOUNTER 2024-08-29 06:00 | Outpatient (RCR) | payer OTHER, SELFPAY | END 2024-09-28 23:59 | disposition home or self-care (01) | LOC: SPT 06:00 | PROVIDERS: PCP Neurological Surgery; Visit Provider Neurological Surgery | DX: M79.605 Pain in left leg (principal); M96.1 Postlaminectomy syndrome, not elsewhere classified | CPT/HCPCS: 97110 ==

== ENCOUNTER 2024-09-29 06:00 | Outpatient (RCR) | payer OTHER, SELFPAY | END 2024-10-25 14:08 | disposition home or self-care (01) | LOC: SPT 06:00 | PROVIDERS: PCP Neurological Surgery; Visit Provider Neurological Surgery | DX: M79.605 Pain in left leg (principal); M96.1 Postlaminectomy syndrome, not elsewhere classified | CPT/HCPCS: 97110 ==

== ENCOUNTER → 2024-12-12 08:50 | Outpatient (BNVA) | payer OTHER, SELFPAY | PROVIDERS: PCP Neurological Surgery; Visit Provider Podiatrist Foot & Ankle Surgery | DX: M79.672 Pain in left foot (principal); M65.972 Unspecified synovitis and tenosynovitis, left ankle and foot | CPT/HCPCS: 73630 ==

== ENCOUNTER 2024-12-25 10:12 | Outpatient (CLI) | payer OTHER, SELFPAY ==
--- NOTE | 2024-12-25 10:20 | MM_ITS ---
WS: [id number] BILATERAL SCREENING DIGITAL TOMOSYNTHESIS MAMMOGRAM WITH CAD HISTORY: Z12.31 - Encounter for screening mammogram for malignant ... COMPARISON: 11/11/2023, 11/03/2023, 06/04/2022 Bilateral CC and MLO views with tomosynthesis and synthetic mammography submitted. Computer aided det ection analyzed. Breast composition: The breasts are heterogeneously dense, which may obscure small masses. No suspici ous masses, microcalcifications or architectural distortion. Asymmetries within each breast are stabl e. No new mass or distortion. MM/MM scr tomosynthesis [id number] IMPRESSION: BI-RADS: 2 - Benign FOLLOW UP: 1 Year Follow-up
== END 2024-12-25 10:13 | disposition home or self-care (01) ==
PROVIDERS: Visit Provider Nurse Practitioner Women's Health
DX: Z12.31 Encounter for screening mammogram for malignant neoplasm of breast (principal); R92.333 Mammographic heterogeneous density, bilateral breasts; N64.89 Other specified disorders of breast
CPT/HCPCS: 77063; 77067

== ENCOUNTER → 2024-12-26 15:25 | Outpatient (BNVA) | payer OTHER, SELFPAY | PROVIDERS: PCP Neurological Surgery; Visit Provider Nurse Practitioner Women's Health | DX: R10.2 Pelvic and perineal pain (principal); N94.10 Unspecified dyspareunia | CPT/HCPCS: 76830 ==

== ENCOUNTER 2025-10-04 12:07 | Outpatient (CLI) | payer OTHER, SELFPAY ==
--- NOTE | 2025-10-04 12:18 | MR_ITS ---
WS: [id number] MRI LUMBAR SPINE NONCONTRAST HISTORY: CHRONIC MIDLINE LOW BACK PAIN W/BILATERAL SCIATICA, bilateral leg numbness. Prior discectomy. COMPARISON: None available. TECHNIQUE: Sagittal and axial multisequence imaging is submitted. 2 mm retrolisthesis of L4. No acute fractures. Mild to space narrowing and desiccation at L4-5. Conus terminates normally at L1. L1-L2: Normal. L2-L3: Reidentified is a small LEFT paracentral disc protrusion which has not significantly changed in size. Mild effacement of ventral CSF but no contact on the nerve roots. Mild disc bulging. Mild ligamentum flavum and facet arthritis. L3-L4: Mild disc bulging. No stenosis. L4-L5: Mild disc bulging with a central disc protrusion. There is mild disc contact of the traversing L5 nerve roots. Disc is slightly smaller in size as compared to 03/13/2024. Moderate ligamentum flavum and facet arthritis. LEFT hemilaminectomy defect. Very mild central and subarticular recess stenosis. L5-S1: Mild disc bulging and facet arthritis. No high-grade stenosis. Negative paravertebral soft tissues. MR/MR lumbar spine wo con* [id number] IMPRESSION: 1. No high-grade central or foraminal stenosis. 2. Status post LEFT L4-5 hemilaminectomy defect. 3. Small central disc protrusion at L4-5 is reidentified but slightly smaller in size as compared to 03/13/2024. 4. Mild central and subarticular recess stenosis at L4-5. 5. Small LEFT paracentral disc protrusion at L2-3 unchanged. No significant co ntact on the nerve roots.
== END 2025-10-04 12:08 | disposition home or self-care (01) ==
LOC: RAD 12:09
PROVIDERS: PCP Neurological Surgery; Visit Provider Nurse Practitioner Family
DX: M54.41 Lumbago with sciatica, right side (principal); M54.42 Lumbago with sciatica, left side; G89.29 Other chronic pain; M43.16 Spondylolisthesis, lumbar region; M51.26 Other intervertebral disc displacement, lumbar region; M51.369 Other intervertebral disc degeneration, lumbar region without mention of lumbar back pain or lower extremity pain; M47.816 Spondylosis without myelopathy or radiculopathy, lumbar region; M47.817 Spondylosis without myelopathy or radiculopathy, lumbosacral region; M51.379 Other intervertebral disc degeneration, lumbosacral region without mention of lumbar back pain or lower extremity pain; Z98.890 Other specified postprocedural states; M48.061 Spinal stenosis, lumbar region without neurogenic claudication
CPT/HCPCS: 72148

== ENCOUNTER 2025-10-31 15:16 | Outpatient (RCR) | payer OTHER, SELFPAY | END 2025-11-28 23:59 | disposition home or self-care (01) | LOC: SPT 15:16 | PROVIDERS: PCP Neurological Surgery; Visit Provider Neurological Surgery | DX: M96.1 Postlaminectomy syndrome, not elsewhere classified (principal) | CPT/HCPCS: 97110; 97161 ==